=== PATIENT | female | born 1970 | race Two or more races ===

== ENCOUNTER 2016-09-27 08:14 | Emergency (ER) | payer OTHER ==
[2016-09-27 08:35] VITALS: BP 126/72
--- NOTE | 2016-09-27 09:38 | UC ---
Respiratory Complaint HPI - HPI Summary HPI Summary: ONSET OF ST, COUGH, BODY ACHES, NAUSEA AND LOOSE STOOL 2 DAYS AGO. FEVER, CHILLS TMAX 101.6. DECREASED APPETITE. TOOK ALL DM MEDS THIS AM BUT DID NOT EAT. - History of Current Complaint Chief Complaint: UCGeneralIllness Stated Complaint: NAUSEA, AND DIARRHEA Time Seen by Provider: 09/27/16 08:34 Hx Obtained From: Patient Hx Last Menstrual Period: 09/27/16 Onset/Duration: Sudden Onset, Lasting Days, Still Present Timing: Constant Severity Initially: Moderate Severity Currently: Moderate Pain Intensity: 3 Pain Scale Used: 0-10 Numeric Character: Cough: Nonproductive Aggravating Factors: Nothing Alleviating Factors: Nothing Associated Signs And Symptoms: Positive: Fever, Chills, Nasal Congestion. Negative: Dyspnea, Pleuritic Chest Pain, Wheezing, Hemoptysis, Dizziness, Calf Pain, Calf Swelling, Hoarseness, Sinus Discomfort - Allergies/Home Medications Allergies/Adverse Reactions: Allergies Allergy/AdvReac Type Severity Reaction Status Date / Time Java Allergy Severe Rash Verified 09/27/16 08:36 Home Medications: Home Medications Control 1 tab PO DAILY 09/27/16 [History] Cholecalciferol [Vitamin D] 1 tab 09/27/16 [History] Diphenhydramine-Acetaminophen [Tylenol Pm Extra Strength 500-25 mg] 2 tab PO PRN 09/27/16 [History] Metformin ER (NF) 2 tab PO BID 09/27/16 [History Confirmed 09/27/16] Multiple Vitamins W/ Minerals [One-A-Day For Her Vitacra] 1 tab 09/27/16 [ History] PMH/Surg Hx/FS Hx/Imm Hx Endocrine History Of: Reports: Diabetes Denies: Thyroid Disease Cardiovascular History Of: Denies: Cardiac Disorders, Hypertension, Pacemaker/ICD Respiratory History Of: Reports: Asthma, Bronchitis - 1+ YR AGO, Pneumonia Denies: COPD GI/ History Of: Reports: Gall Bladder Disease, Kidney Stones - RIGHT SIDE CURRENTLY, Renal Disease - BILATERAL Denies: Ulcer - Surgical History Surgical History: Yes Surgery Procedure, Year, and Place: 1995- tubal ligation, GALL STONE REMOVAL 2009, 4 C-SECTIONS, KIDNEY STONES LITHOTRIPSY 2013 Other Surgical History: gallstone 'laser'. lithotripsy left sided kidney stones - Family History Known Family History: Positive: Diabetes - Social History Alcohol Use: Rare Alcohol Amount: 1 beer Substance Use Type: None Smoking Status (MU): Former Smoker Type: Cigarettes Amount Used/How Often: 1/2-1 PPD X 23 YEARS Have You Smoked in the Last Year: No When Did the Patient Quit Smoking/Using Tobacco: 2004 Household Exposure Type: Cigarettes - Immunization History Most Recent Influenza Vaccination: 05/2016 Most Recent Tetanus Shot: Unsure Most Recent Pneumonia Vaccination: none Review of Systems Constitutional: Fever, Chills, Fatigue ENT: Sore Throat, Ear Ache, Nasal Discharge Respiratory: Cough Cardiovascular: Negative Gastrointestinal: Diarrhea, Other - NAUSEA Musculoskeletal: Myalgia Neurological: Headache All Other Systems Reviewed And Are Negative: Yes Physical Exam Triage Information Reviewed: Yes Appearance: No Pain Distress, Well-Nourished, Ill-Appearing - MODERATELY ILL APPEARING Vital Signs: Initial Vital Signs Temp 99.3 F 09/27/16 08:27 Pulse 107 09/27/16 08:27 Resp 18 09/27/16 08:27 BP 126/72 09/27/16 08:27 Pulse Ox 97 09/27/16 08:27 Eyes: Positive: Conjunctiva Clear ENT: Positive: Hearing grossly normal, Pharynx normal, TMs normal Neck: Positive: Supple, Nontender, No Lymphadenopathy Respiratory Exam: Normal Cardiovascular: Positive: Tachycardia Abdomen Description: Positive: Soft, Other: - DIFFUSELY TENDER. Negative: Distended, Guarding Musculoskeletal: Positive: No Edema Neurological: Positive: Alert Psychological: Positive: Age Appropriate Behavior Skin: Negative: rashes UC Diagnostic Evaluation - Laboratory O2 Sat by Pulse Oximetry: 97 Diagnostic Studies Comment: RAPID FLU POS - FLU A Respiratory Course/Dx - Differential Dx/Diagnosis Provider Diagnoses: INFLUENZA A Discharge - Discharge Plan Condition: Stable Disposition: HOME Prescriptions: Oseltamivir CAP* [Tamiflu CAP*] 75 mg PO BID #10 cap Patient Education Materials: Influenza (ED) Forms: *Work Release Referrals: Katie Valente MD [Primary Care Provider] - If Needed Additional Instructions: REST, OTC MEDS NEEDED FOR FEVER AND DISCOMFORT. FOLLOW-UP IF NEEDED.
== END 2016-09-27 09:54 | disposition home or self-care (01) ==
LOC: UCEAST 08:14
DX: J09.X2 Influenza due to identified novel influenza A virus with other respiratory manifestations (principal); E11.9 Type 2 diabetes mellitus without complications; Z79.84 Long term (current) use of oral hypoglycemic drugs; Z87.891 Personal history of nicotine dependence
CPT/HCPCS: 87502; 99212; G0463

== ENCOUNTER 2017-01-06 06:31 | Inpatient (IN) | payer OTHER ==
--- NOTE | 2016-12-29 15:09 | HP ---
PREOPERATIVE HISTORY AND PHYSICAL: DATE OF ADMISSION/SURGERY: 01/06/17 This patient is scheduled for AA admission by Dr. Christie on 01/06/17. DATE OF PREOPERATIVE HISTORY AND PHYSICAL EXAMINATION: 12/29/16. ATTENDING SURGEON: Dr. Quincy Christie (dictated by Jin Jin NP). CHIEF COMPLAINT: Morbid obesity. HISTORY OF PRESENT ILLNESS: The patient is a 46-year-old female with a body mass index of 47.7 and obesity-related comorbidities of insulin-dependent diabetes mellitus, obstructive sleep apnea requiring BiPAP, and degenerative disk disease. She has completed medically supervised weight loss and is pursuing bariatric surgery as a more permanent solution to her obesity and comorbidities. She has completed all of the necessary preoperative diagnostic testing and evaluations and has been deemed an appropriate candidate by Dr. Christie to proceed with laparoscopic Harley-en-Y gastric bypass. Dr. Christie described the nature of the surgical procedure, the expected results of surgery , the relevant risks, benefits, and alternatives and today I reviewed the expected hospitalization and postoperative care and recovery. The patient understands the need for compliance with stages of the postoperative diet, exercise, vitamin, and mineral supplementation, and followup appointments. The patient has had a chance to ask questions and stated that she understands the information and is satisfied with the answers given to her questions. She will sign surgical consent on the day of surgery. PAST MEDICAL HISTORY: Significant for insulin-dependent diabetes mellitus diagnosed over 10 years ago; obstructive sleep apnea and she has been on BiPAP for over 2 years; worsening back pain with degenerative disk disease and osteoarthritis as documented on an MRI of the lumbar spine, dated 04/18/16. There is also severe narrowing of the central canal at L4-L5 and broad-based central disk protrusion, T12 through L1, and multilevel neuroforaminal narrowing. PAST SURGICAL HISTORY: sections x4; laparoscopic cholecystectomy in 2009 in [place]; Cysto stent for left kidney stones in 2013, Dr. Maria; tubal ligation in 1995; and laser eye surgery for macular edema bilaterally. OB HISTORY: 5, para 4, miscarriage 1; last menstrual period started 05/17. She is status post tubal ligation. She is up-to-date with breast exam, pelvic and Pap smear. MEDICATIONS: 1. Ferrous gluconate 324 mg p.o. b.i.d. 2. Flonase Allergy Relief 1 spray in each nostril daily as needed. 3. Tylenol with Codeine No. 3, 1 to 2 tablets every 6 hours p.r.n. 4. Metformin 1000 mg p.o. b.i.d. and she has not taken that for 2 weeks and she will continue to hold it preoperatively. 5. Victoza 18 mg/3 mL inject 1.8 mg subcutaneously daily and she has held that for the past 2 weeks. 6. Lantus insulin 100 units per mL, 45 units daily in the morning. 7. NovoLog insulin sliding scale with meals. 8. Proventil inhaler 1 puff every 4 hours as needed. 9. Lisinopril 10 mg p.o. daily and she states that she ran out of this prescription and has not taken it for 1 week. 10. Gabapentin 100 mg 2 tablets by mouth t.i.d. and she states that she went off of that several weeks ago. ALLERGIES: No known drug allergies. STRAWBERRIES cause rash. FAMILY HISTORY: Mother is living, age 88, she is now in a halfway, she had a previous history of obesity and diabetes. The patient's father at age 71 with heart disease and complications of diabetes. Three of the patient's brothers are diabetic. No known anesthesia complications, bleeding tendencies, or clotting disorders in the family. SOCIAL HISTORY: She is and is employed at the [employer]; she quit smoking 20 years ago; she drinks alcohol socially and denies the use of other substances. REVIEW OF SYSTEMS: She denies any cardiac conditions or complaints; she was taking lisinopril and was told that it was heart protective and that she was not being treated for hypertension; she denies any chest pain, pressure, palpitations, and has never had a deep vein thrombosis or pulmonary embolism. She has obstructive sleep apnea and uses BiPAP with good effect; she has exercise-induced asthma symptoms; no history of pneumonia. She denies acid reflux; she underwent upper GI series, which was within normal limits. She had an abdominal ultrasound, which revealed hepatic steatosis and a surgically absent gallbladder. She has a history of urinary cough leakage; history of left kidney stones, requiring a Cysto stent by Dr. Maria in 2013. She denies any previous anesthesia complications or bleeding tendencies and has never received a blood transfusion. She was diagnosed with type 2 diabetes over 10 years ago and is now insulin-dependent. Fingerstick glucose runs between 140 to 150. She is checking her fingersticks frequently while on the preoperative liquid diet. She is followed at [facility] every 3 months for diabetes and states that her previous physician is no longer there and she is going to be assigned to a new physical therapy aide. She is followed by a retina specialist in [place] for macular edema, requiring laser surgery and injections. She is followed by Dr. Riggins from Podiatry for diabetic foot care. She has been seen by Dr. Phillips from Orthopedics for evaluation of her chronic back pain. She denies any dysuria; she denies any neurologic conditions or complaints. PHYSICAL EXAMINATION GENERAL SURVEY: The patient is a 46-year-old morbidly obese female. VITAL SIGNS: She stands at 64-1/2 inches and weighs 282 pounds for a body mass index of 47.7. Blood pressure 138/82, pulse 80 and regular, respiratory rate 18 , temperature 97.7 tympanic. SKIN: Warm, dry, intact. HEENT: Benign. NECK: Supple. No cervical lymphadenopathy. No supraclavicular lymphadenopathy. No thyromegaly. BACK: No CVA tenderness. LUNGS: Breath sounds bilaterally clear and equal. HEART: Regular rate and rhythm. No murmurs or rubs appreciated. ABDOMEN: Active bowel sounds. Obese. Well-healed Pfannenstiel scar and multiple trocar scars. No obvious masses, organomegaly, or evidence of incisional or ventral hernias, but exam is limited by body habitus. PELVIC: Deferred. EXTREMITIES: Warm without edema or skin ulcerations. RECTAL: Deferred. NEUROLOGIC: Alert and oriented x3. Steady gait. IMPRESSION: 1. Morbid obesity. 2. Insulin-dependent diabetes mellitus. 3. Obstructive sleep apnea, requiring BiPAP. 4. Degenerative joint disease. PLAN: AA admission to Dr. Christie' service on 01/06/17, for laparoscopic Harley-en-Y gastric bypass. JIN JIN NP CC: Dr. Christie; Dr. Katie Valente* [id number]/[facility] #: [id number] [place]
[~2017-01-06 06:31] MED LIST: Buffered Lidocaine 1% SYRIN* 3 ML/SYR SYRINGE INTRADERM ONE
[2017-01-06] MEDS ORDERED: Bupivacaine 0.5% W/EPI SDV* 30 ML VIAL ONE (07:01)
[2017-01-06] MEDS ORDERED: Methylene Blue 0.5 %* 50 MG/10 ML AMP IV ONE (07:01)
[2017-01-06] MEDS ORDERED: ceFAZolin 2 GM PREMIX(*) 2 GM/50 ML BAG IVPB ONE (07:14)
[2017-01-06] MEDS ORDERED: Clindamycin 900 MG IVPREMIX(* 900 MG/50 ML SDV IV ONE (07:14)
[2017-01-06] MEDS ORDERED: Heparin VIAL(*) 5000 UNITS/ML VIAL (FIVE THOUSAND) ONE ×2 (07:14→14:52)
[2017-01-06] MEDS ORDERED: ceFAZolin 1 GM in Dextrose (*) 1 GM/50 ML BAG IVPB ONE (07:14)
[2017-01-06] MEDS ORDERED: fentaNYL* 50 MCG/ML 2 ML VIAL (100 MCG VIAL) ONE ×3 (07:55→10:28)
[2017-01-06] MEDS ORDERED: Midazolam* 1 MG/ML 5 ML VIAL (5 MG) ONE (07:55)
[2017-01-06] MEDS ORDERED: Propofol* 10 MG/ML 20 ML BTL IV PUSH ONE (07:55)
[2017-01-06] MEDS ORDERED: Succinylcholine* 20 MG/ML 10 ML VIAL ONE (08:00)
[2017-01-06] MEDS ORDERED: Atracurium* 10 MG/ML 10 ML VIAL ONE (08:00)
[2017-01-06] MEDS ORDERED: Scopolamine 1.5 mg* PATCH ONE (08:15)
[2017-01-06] MEDS ORDERED: DiMENhydriNATE IV* 50 MG/ML VIAL IV PUSH PRN (09:14)
[2017-01-06] MEDS ORDERED: Ondansetron INJ* 2 MG/ML VIAL IV PRN ×2 (09:14→10:13)
[2017-01-06] MEDS ORDERED: HYDROmorphone* 1 MG/ML 1 ML SYR IV PRN ×3 (09:14→10:13)
[2017-01-06] MEDS ORDERED: Ondansetron INJ* 2 MG/ML VIAL ONE ×2 (09:54→11:09)
--- NOTE | 2017-01-06 10:06 | PN ---
Progress Note - Progress Note Note: Brief Operative Note: Preop and Postop Dx: Morbid Obesity Procedure: Laparoscopic Harley En Y Gastric Bypass Anesthesia: GET Surgeon: Pratik Asst: LAKHWINDER Hope EBL: < 100 ml Fluids: 2300 ml RL Drains: none Specimen: none Findings: dictated
[2017-01-06] MEDS ORDERED: diPHENhydraMINE IV* 50 MG/ML 1 ml VIAL (BENADRYL) SLOW PUSH PRN (10:13)
[2017-01-06] MEDS ORDERED: Acetaminophen ADULT LIQ* 650 MG/20.3 ML UDC PO PRN (10:13)
[2017-01-06] MEDS ORDERED: Fluticasone NASAL SPRAY 50MCG* 16 gm SPRAY BTL BOTH NARES PRN (10:20)
[2017-01-06] MEDS ORDERED: Albuterol HFA INHALER* 8 gm MDI INH PRN (10:20)
[2017-01-06] MEDS ORDERED: HYDROmorphone* 1 MG/ML 1 ML SYR ONE ×2 (10:28→14:52)
[2017-01-06] MEDS: fentaNYL* 50 MCG/ML 2 ML VIAL (100 MCG VIAL) IV PRN ×4 (10:30→12:23)
[2017-01-06] MEDS ORDERED: Dextrose 50% Syringe 50 ML* 25 GM/50 ML SYRINGE IV PUSH PRN (10:41)
[2017-01-06] MEDS ORDERED: Labetalol IV* 5 MG/ML 20 ML VIAL ONE (12:08)
[2017-01-06] MEDS ORDERED: hydrALAZINE IV* 20 MG/ML VIAL ONE (12:56)
[2017-01-06] MEDS: Insulin LISPRO* 1 UNITS UNIT SUBCUT SCH ×2 (14:25→18:28)
[2017-01-06] MEDS: Heparin VIAL(*) 5000 UNITS/ML VIAL (FIVE THOUSAND) SUBCUT SCH ×2 (14:57→22:09)
[2017-01-06] MEDS: Ketorolac INJ* 30 MG/ML 1 ML VIAL IV PRN (18:27)
[2017-01-07] MEDS: Insulin LISPRO* 1 UNITS UNIT SUBCUT SCH ×4 (00:02→19:51)
[2017-01-07] MEDS: Ketorolac INJ* 30 MG/ML 1 ML VIAL IV PRN (05:33)
[2017-01-07] MEDS: Heparin VIAL(*) 5000 UNITS/ML VIAL (FIVE THOUSAND) SUBCUT SCH ×3 (05:33→22:22)
--- NOTE | 2017-01-07 08:30 | PN ---
Progress Note - Progress Note SOAP: Subjective: Pain well controlled. No N/V. Objective: Vital Signs Temp 98.4 F 01/07/17 07:14 Pulse 88 01/07/17 07:14 Resp 18 01/07/17 07:14 BP 133/71 01/07/17 07:14 Pulse Ox 98 01/07/17 07:14 NAD, sitting in chair. Abd: dressings, c/d/i, no erythema; soft; NT. Intake & Output 01/06/17 01/07/17 01/07/17 18:59 06:59 18:59 Intake Total 2800 2184 Output Total 1050 600 Balance 1750 1584 Intake: IV Fluids 2800 2184 900MG CLINDAMYCIN 50 LR 2650 2184 NS 50ML, Cefazolin 1G 50 NS 50ML, Cefazolin 2G 50 Oral 0 Output: Urine 800 600 Beyer 250 Laboratory Results - last 24 hr 01/06/17 01/06/17 01/06/17 10:52 18:06 23:56 POC Glucose (mg/dL) 168 H 181 H 134 H 01/07/17 05:37 POC Glucose (mg/dL) 141 H Assessment: POD#1 s/p LRYGB. Doing well. Plan: Advance diet. Ambulate. Home tomorrow.
[2017-01-07] MEDS: Insulin GLARGINE(*) 1 UNITS UNIT SUBCUT SCH (09:39)
--- NOTE | 2017-01-07 10:49 | OP ---
DATE OF OPERATION: 01/06/17 - ROOM #353 DATE OF : 66 SURGEON: Quincy Christie MD SOLAR SALES REPRESENTATIVE AND ASSESSOR: LAKHWINDER Marrero ANESTHESIOLOGIST: Kee Bourgeois MD ANESTHESIA: General endotracheal. PRE-OP DIAGNOSIS: Morbid obesity. POST-OP DIAGNOSIS: Morbid obesity. OPERATIVE PROCEDURE: Laparoscopic Harley-en-Y gastric bypass. ESTIMATED BLOOD LOSS: Minimal. IV FLUIDS: Crystalloid. SPECIMENS: None. DRAINS: None. COMPLICATIONS: None. COUNTS: The instrument, needle, and sponge counts were correct. DESCRIPTION OF PROCEDURE: The patient was brought to the operating room and placed on the table supine. Sequential compression devices were placed on both lower extremities. General anesthesia was administered. Beyer catheter was placed. Her abdomen was prepped and draped in the usual sterile fashion. She received appropriate antibiotics and time-out was performed. Local anesthetic was infiltrated into the skin and soft tissue prior to making each incision. Entry into the abdomen was through a left upper quadrant incision accommodating a 12-mm optical trocar. After accessing the peritoneal cavity, carbon dioxide was insufflated to a pressure of 15 mmHg. Under direct visualization, 5 mm trocars were placed in the left upper quadrant laterally, right upper quadrant medially, and 12-mm bladeless trocars were placed in supraumbilical midline and right upper quadrant as well. A Felecia liver retractor was placed in the subxiphoid position percutaneously and used to elevate the left lobe of the liver. The liver did appear to be fatty infiltrated. The gastric anatomy appeared normal and the mobilization of the fundus of the stomach away from the left dani of the diaphragm was performed bluntly. A perigastric dissection was undertaken on the lesser curvature to enter the lesser sac and then a transverse firing with the Endo RONNY stapler with the tiwari cartridge was used to initiate the gastric pouch, which was then completed with vertical firings along the stomach towards the angle of His to create a gastric pouch approximating 15 to 30 mL volume. After the pouch was created, the omentum and transverse colon were retracted superiorly and the ligament of Treitz was identified. The jejunum was measured out 40 cm, and at this point, the bowel was sutured to the lateral left aspect of the gastric pouch with 2-0 silk and 3-0 silk sutures. Then the gastrojejunostomy was created with a RONNY stapler sizing it around a 36-Croatian orogastric tube. The common gastroenterotomy was run closed with 3-0 Maxon. The Harley limb was created by dividing the loop of small bowel to the left side of the anastomosis, and then the anastomosis was tested with methylene blue dye solution instilled through the orogastric tube and no leak was identified. Lastly, the Harley limb was measured out to 75 cm, and at that point, a functional end-to-side jejunojejunostomy was created with a 16-mm tiwari Endo RONNY stapler cartridge. The common enterotomy was run closed with 3-0 Maxon. The mesenteric defect was closed with 3-0 silks in interrupted [id number] fashion. Inspection revealed hemostasis to be excellent. Ports were removed under direct visualization and the liver retractor was removed. Carbon dioxide was released. The patient was extubated uneventfully and transferred to recovery room in stable condition. CC: Katie Valente MD* [id number]/[facility] #: [id number] [place]
[2017-01-07] MEDS: HYDROcodone/ACET. 7.5/325 LIQ* 15 ML UDC PO PRN (12:57)
[2017-01-07] MEDS ORDERED: PTO: Albuterol HFA INHALER* 8 gm MDI INH PRN (17:10)
[2017-01-07] MEDS ORDERED: Famotidine IV* 10 MG/ML 2 ML (20 mg) ONE (22:17)
[2017-01-08] MEDS: Insulin LISPRO* 1 UNITS UNIT SUBCUT SCH ×3 (00:26→12:12)
[2017-01-08] MEDS: HYDROcodone/ACET. 7.5/325 LIQ* 15 ML UDC PO PRN (02:28)
[2017-01-08] MEDS: Heparin VIAL(*) 5000 UNITS/ML VIAL (FIVE THOUSAND) SUBCUT SCH (06:19)
--- NOTE | 2017-01-08 09:28 | PN ---
Progress Note - Progress Note SOAP: Subjective: Good pain control. +flatus/BM. Tolerating clears; not hungry. Seen by RD but not by Hospitalist. She says [facility] has been managing DM but she is unclear as to current management plan. Objective: Vital Signs Temp 97.6 F 01/08/17 07:45 Pulse 65 01/08/17 07:45 Resp 16 01/08/17 07:46 BP 147/66 01/08/17 07:45 Pulse Ox 97 01/08/17 07:46 NAD Abd: inci c/d/i no erythema; soft; NT. Intake & Output 01/07/17 01/08/17 01/08/17 18:59 06:59 18:59 Intake Total 360 1253 Output Total 1000 600 450 Balance -640 653 -450 Intake: IV Fluids 1148 LR 1148 IVPB 105 pepcid 105 Oral 360 Output: Urine 1000 600 450 Other: Date of Last Bowel 01/07/17 Movement # Bowel Movements 1 Estimated Stool Amount Large Laboratory Results - last 24 hr 01/07/17 01/07/17 01/08/17 12:07 17:22 00:24 POC Glucose (mg/dL) 122 H 114 H 118 H 01/08/17 06:01 POC Glucose (mg/dL) 111 H Assessment: POD#2 s/p LRYGB. DM. Doing well. Plan: Hospitalist will see to clarify DM management plan. Home later today. RTO 1 week for staple removal. Follow diet guidelines.
[2017-01-08] MEDS: Insulin GLARGINE(*) 1 UNITS UNIT SUBCUT SCH (09:39)
--- NOTE | 2017-01-08 11:47 | PN ---
Progress Note - Progress Note Note: Consult dictated. Recommend at discharge : cont Lantus 45 mg daily in AM Hold Victosa and metformin cont Fingersticks 4x/day
[2017-01-08 12:39] VITALS: BP 161/81
--- NOTE | 2017-01-08 13:37 | CONS ---
CONSULTATION REPORT: DATE OF CONSULT: 01/08/17 PRIMARY CARE PROVIDER: Dr. Valente. REASON FOR CONSULTATION: Diabetic management. HISTORY OF PRESENT ILLNESS: Ms. Foy is a 46-year-old female with a history of morbid obesity who is status post gastric bypass surgery which was a laparoscopic surgery performed by Dr. Christie on 01/07/17. Today, she is doing well and she is on clear liquid diet and she is prepared for discharge. Dr. Christie asked medicine service to see the patient for recommendations for diabetic management at discharge. PAST MEDICAL HISTORY: 1. History of insulin-dependent diabetes for 10 years under the care of [facility]. The patient stated that her primary support service tech at [facility] is not in the facility anymore and she missed one appointment in the past month. 2. Obstructive sleep apnea, on BiPAP. 3. History of lower back pain and degenerative disk disease. 4. History of x4. 5. Laparoscopic cholecystectomy. 6. History of cystoscopy for kidney stones in 2013. 7. Tubal ligation in 1995. 8. Laser eye surgery for macular edema bilaterally in the past. MEDICATIONS AT HOME: Include: 1. Ferrous gluconate 4 mg b.i.d. 2. Flonase one spray each nostril as needed. 3. Tylenol was called in on a p.r.n. basis. 4. Metformin 1000 mg b.i.d. 5. Victoza 1.8 mg subcutaneous daily, none for 2 weeks prior to surgery. 6. Insulin Lantus, the patient used to be on 45 units b.i.d. but 2 weeks before surgery, she started dieting and she lowered her dose to 45 mg daily due to episodes of hypoglycemia. 7. NovoLog sliding scale with meals. 8. Albuterol inhaler on a p.r.n. basis. 9. Lisinopril 10 mg daily. 10. Gabapentin 200 mg 3 times a day. During the hospital stay, the patient had been on Pepcid IV every 12 hours, as well as IV fluids with lactated Ringer's. The patient was on insulin lispro sliding scale as well as insulin Lantus 45 units daily. She was also on hydromorphone for pain management and fluticasone nasal spray. Her sugars had been in the range of 111 to 141 for the past 2 days. There had not been any laboratory tests performed during the hospital stay. ALLERGIES: No known drug allergies. FAMILY HISTORY: Positive for mother with history of obesity and diabetes. Father with history of heart disease, who at age of 71. SOCIAL HISTORY: The patient is , employed by the [employer]. She denies current tobacco or alcohol use. Her surrogate is her , James Paul. REVIEW OF SYSTEMS: Please see history of present illness. On the day of admission, the patient stated that she had been on clear diet and she has been doing well. She has had bowel movements. She occasionally has postoperative abdominal pain due to "gas." She has been ambulating without any problems postoperatively. The remaining 14 systems were reviewed with the patient and were otherwise negative. PHYSICAL EXAM: Blood pressure 147/66, heart rate of 65 and regular, respiratory rate 18, oxygen saturation 100% on room air, temperature 97.6. General: The patient is a very pleasant 46-year-old female who is in no acute distress. Alert, awake, and oriented x3. HEENT: Head is atraumatic, normocephalic. Eyes: Pupils are equal, round, and reactive to light and accommodation. Oropharynx clear. Mucosa moist. Neck: Supple. No JVD. No bruits bilaterally. Cardiovascular: Regular rate and rhythm. No murmur. Respiratory: Clear to auscultation bilaterally. Abdomen: Protuberant, obese, soft, minimally tender in the terra- incision area. The patient has multiple status post laparoscopic surgery incisions on her abdomen. Most of them are below 2 cm in length. They are all stapled. There was no wound dehiscence noted. There is no skin infection noted. Extremities: There is no edema. Pulses are +2 bilaterally. No clubbing or cyanosis. On neuro evaluation, speech clear. Cranial nerves II through XII grossly intact. Motor strength is 5/5 bilaterally. ASSESSMENT AND PLAN: A 46-year-old female status post gastric bypass surgery, who has history of insulin-dependent diabetes. In regards to the patient's diabetic management, I asked the outreach educator from [facility] to come in to evaluate the patient today prior to discharge. At this point, I recommended for the patient to continue checking her sugars 3 to 4 times a day and continue her insulin Lantus at 45 units daily. She is to hold her Victoza and metformin. I told her that it is possible that as time progresses on her clear liquid diet for the next 2 weeks, she may actually become hypoglycemic and she needs to watch for her symptoms which she is aware of. I suspect she is going to follow with [facility] outreach educator as outpatient also. In regards to her seasonal allergies, Flonase inhaler is to be continued on a p.r.n. basis. In regards to status post gastric bypass, that will be as per recommendations of Dr. Christie. For obstructive sleep apnea, the patient is to continue BiPAP at home. TIME SPENT: Approximately 65 minutes was spent on the consultation of this patient, more than half that time was spent [id number] with the patient during the interview and physical exam. Thank you for allowing me to see your very nice patient in consultation. Please let me know if there is anything else that we could assist this patient with during her hospital stay. Otherwise, Medicine will sign off. CC: Dr. Christie; Dr. Valente* [id number]/[facility] #: [id number] [facility]
--- NOTE | 2017-01-08 14:29 | PN ---
Progress Note - Progress Note Note: Seen this a.m. by Dr. Christie. Discharge instructions reviewed. See d/c summary.
--- NOTE | 2017-01-08 15:29 | CONSULT ---
Subjective Reason for Visit: Diabetes Education Consult Admission Date: 01/06/17 History Of Present Illness: 46 year old woman with a 15 year history of type 2 diabetes post-op day 2 from laparoscopic harry-en-Y gastric bypass. She has had an uneventful post- operative course and will be discharged home today. Pre-operatively she was on Metformin, 90 U Lantus, Humalog sliding scale coverage and Victoza to manage her diabetes. She reports that her last HgbA1C was <7%. She was followed by the [facility] for her diabetes prior to surgery but has not been there recently because the research tech she was seeing left. She is hoping that she will eventually be off of most of her diabetic medications and has been doing very well with 45 Units of Lantus in the morning since having surgery. Dr Valente is her PCP but she has not seen her regularly. Patient History Surgical History: Yes Surgery Procedure, Year, and Place: 1995- tubal ligation WITH , GALL STONE REMOVAL 2009, 4 C-SECTIONS, KIDNEY STONES LITHOTRIPSY 2013 Preferred/Primary Language: Malagasy Objective Allergies Allergy/AdvReac Type Severity Reaction Status Date / Time [place] Allergy Severe Rash Verified 01/06/17 06:44 Home Medications Medication Instructions Recorded Confirmed Type Albuterol INH (Proventyl)(NF) 2 puff IN Q4HR PRN 02/27/14 02/18/16 History [Proventil Hfa (NF)] Gabapentin CAP(*) [Neurontin 100 2 cap PO TID 02/27/14 02/18/16 History mg CAP(*)] zzInsulin GLARGINE(*) [zzLantus(*)] 45 units SUBCUT QAM 02/27/14 02/18/16 History Insulin Aspart [Novolog] 1 unit SC PRN 08/19/15 08/19/15 History Cyanocobalamin TAB* [Vitamin B12 5,000 mcg PO DAILY 02/18/16 02/18/16 History TAB*] diPHENhydraMINE PO* [Benadryl PO 25 mg PO PRN 02/18/16 History 25 MG TAB*] Control 1 tab PO DAILY 09/27/16 History Diphenhydramine-Acetaminophen 2 tab PO PRN 09/27/16 History [Tylenol Pm Extra Strength 500-25 mg] Acetaminop/Codeine 30 MG TAB* 1 tab PO BID PRN 12/29/16 01/06/17 History [Tylenol/Codeine 30 MG TAB*] Fluticasone NASAL SPRAY 50MCG* 1 spray BOTH NARES DAILY PRN 12/29/16 01/06/17 History [Flonase NASAL SPRAY 50MCG*] Iron Supplement 1 tab PO DAILY 12/29/16 History Nystatin TOP POWDER* 1 applic TOPICAL DAILY 12/29/16 01/06/17 History Vitamin D2 1 cap PO WEEKLY 12/29/16 12/29/16 History Acetaminophen ADULT LIQ* [Tylenol 650 mg PO Q6H PRN #0 udc 01/08/17 Rx ADULT LIQ*] Hospital Medications: Current Medications Acetaminophen (Tylenol Adult Liq*) 650 mg PO Q6H PRN PRN Reason: Temp > 101 F Or Mild Pain Hydrocodone Bitart/Acetaminophen (Nortab 7.5/325 Liq*) 15 ml PO Q6H PRN PRN Reason: PAIN Last Admin: 01/08/17 02:28 Dose: 15 ml Albuterol (Ventolin Hfa Inhaler*) 2 puff INH Q4HR PRN PRN Reason: SOB/WHEEZING Dextrose (D50w Syringe 50 Ml*) 12.5 gm IV PUSH .FOR FS < 60 - SS PRN PRN Reason: FS < 60 Diphenhydramine HCl (Benadryl Iv*) 25 mg SLOW PUSH Q6H PRN PRN Reason: ITCHING Fluticasone Propionate (Flonase Nasal Seale 50mcg*) 1 spray BOTH NARES DAILY PRN PRN Reason: ALLERGIES Heparin Sodium (Porcine) (Heparin Vial(*)) 5,000 units SUBCUT Q8HR COUNT INCLUDES THE [facility] Last Admin: 01/08/17 06:19 Dose: 5,000 units Hydromorphone HCl (Dilaudid Iv*) 0.5 mg IV Q3H PRN PRN Reason: PAIN - MODERATE Hydromorphone HCl (Dilaudid Iv*) 1 mg IV Q3H PRN PRN Reason: PAIN - SEVERE Last Admin: 01/06/17 14:56 Dose: 1 mg Famotidine 20 mg/ Sodium (Chloride) 102 mls @ 408 mls/hr IVPB Q12H COUNT INCLUDES THE [facility] Last Admin: 01/08/17 11:08 Dose: 408 mls/hr Insulin Glargine (Lantus(*)) 45 units SUBCUT QAM COUNT INCLUDES THE [facility] Last Admin: 01/08/17 09:39 Dose: 45 units Insulin Human Lispro (Humalog*) 0 units SUBCUT Q6HR YANG PRN Reason: Protocol Last Admin: 01/08/17 12:12 Dose: Not Given Ondansetron HCl (Zofran Inj*) 4 mg IV Q6H PRN PRN Reason: NAUSEA/VOMITING Vital Signs: Vital Signs 01/08/17 01/08/17 01/08/17 07:45 07:46 12:03 Temperature 97.6 F 98.2 F Pulse Rate 65 74 Respiratory 18 16 18 Rate Blood Pressure 147/66 161/81 (mmHg) O2 Sat by Pulse 100 97 96 Oximetry Height: 5 ft 4 in Weight: 279 lb 9.6 oz Body Mass Index (BMI): 47.9 Physical Exam General Appearance: Positive: Alert, Oriented x3, Obese, Comfortable, OOB Sitting In Chair Plan Of Care Patient's Next Step: Patient will be discharged home. She will be on 45 Units of Lantus/day which is half of her pre-operative basal insulin dose. It would be appropriate to restart Metformin when she can take pills and gradually decrease her basal insulin as she loses weight. She would like to follow up with her PCP (Dr Valente) for diabetic management if possible. Dr. Valente's office was contacted regarding this and they will contact the patient regarding making a follow up appointment. She has an excellent understanding of recognition and treatment of hypoglycemic episodes and her is very supportive in these instances too. Referral To: Air Analysis Engineering Technician - will follow up at [facility] for post-operative dietary counseling Education Prior Diabetic Education: Yes Goals Goals: 30 minutes was spent in face to face counseling and coordination of care.
--- NOTE | 2017-01-09 01:40 | DS ---
DISCHARGE SUMMARY: DATE OF ADMISSION: 01/06/17 DATE OF DISCHARGE: 01/08/17 ATTENDING SURGEON: Quincy Christie MD (DICTATED BY [facility]AY) HOSPITAL COURSE: Please refer to admission history and physical for admission details. The patient was taken to the operating room on 01/06/17 and underwent laparoscopic Harley-en-Y gastric bypass with Dr. Christie. Her postoperative course has been otherwise unremarkable with gradual resumption of bariatric clear liquid diet and pain control. As of the morning of discharge, temperature is 98.2, blood pressure 161/81, pulse 74, respirations 18, room air saturation 96%. She had been seen and examined earlier in the morning by Dr. Christie and deemed appropriate for discharge pending final consult for diabetes management. DISCHARGE MEDICATIONS: Will include her usual inhalers. Supplements as directed. Lantus 45 units subcu q.a.m. She will have her NovoLog to use for coverage if she is hyperglycemic, though at this point the concern is more for potential hypoglycemia. She will hold her Victoza and metformin. She will also continue to hold lisinopril until seen for followup in our office on . Her gabapentin had apparently been stopped pre-hospital. She does have prescription for hydrocodone/APAP elixir and will use adult strength liquid acetaminophen p.r.n. for mild pain. DISCHARGE INSTRUCTIONS: Including diet, wound care, and activities were reviewed as well as review of her medications. FOLLOWUP: Followup will be 01/16/17 in our office. She should be seen within the next couple of weeks by her primary care office, Dr. Katie Valente as well. [facility] CC: [facility]; Dr. Katie Valente, [facility]; [facility] * [id number]/[facility] #: [id number] [place]
== END 2017-01-08 15:30 | disposition home or self-care (01) | DRG 403 ==
LOC: AA 06:31 → SSU 13:47
PROVIDERS: ADMIT Surgery; ATTEND Surgery
PROC: 0D164ZA Bypass Stomach to Jejunum, Percutaneous Endoscopic Approach (ICD-10-PCS; principal; 2017-01-06 08:00)
DX: E66.01 Morbid (severe) obesity due to excess calories (principal); E11.21 Type 2 diabetes mellitus with diabetic nephropathy; E11.40 Type 2 diabetes mellitus with diabetic neuropathy, unspecified; G47.33 Obstructive sleep apnea (adult) (pediatric); M48.06 Spinal stenosis, lumbar region; J45.909 Unspecified asthma, uncomplicated; E11.319 Type 2 diabetes mellitus with unspecified diabetic retinopathy without macular edema; K76.0 Fatty (change of) liver, not elsewhere classified; M51.36 Other intervertebral disc degeneration, lumbar region; M47.9 Spondylosis, unspecified; I10 Essential (primary) hypertension; M51.35 Other intervertebral disc degeneration, thoracolumbar region; Z68.42 Body mass index [BMI] 45.0-49.9, adult; Z98.51 Tubal ligation status; Z91.018 Allergy to other foods; Z87.891 Personal history of nicotine dependence; Z83.3 Family history of diabetes mellitus; Z82.49 Family history of ischemic heart disease and other diseases of the circulatory system; Z87.442 Personal history of urinary calculi; Z79.4 Long term (current) use of insulin
CPT/HCPCS: 94760; 99252; A9270-GY; C1776; J0330; J0360; J0690; J1170; J1644; J1885; J2250; J2405; J2704; J3010

== ENCOUNTER 2017-04-09 18:54 | Emergency (ER) | payer OTHER ==
[2017-04-09 19:00] VITALS: BP 128/47
--- NOTE | 2017-04-09 19:08 | UC ---
Abdominal Pain Female HPI - HPI Summary HPI Summary: 46 year old female presents with complains of not feeling well, nausea, and abdominal pain. - History of Current Complaint Chief Complaint: UCGeneralIllness Stated Complaint: DIARRHEA NAUSEA Time Seen by Provider: 04/09/17 19:05 Hx Last Menstrual Period: 04/09/17 Allergies/Adverse Reactions: Allergies Allergy/AdvReac Type Severity Reaction Status Date / Time [place] Allergy Severe Rash Verified 04/09/17 19:00 Home Medications: Home Medications Cholecalciferol TAB* [Vitamin D TAB*] 2,000 units PO DAILY 04/09/17 [History Confirmed 04/09/17] Pediatric Multiple Vitamin W/ [Alive Gummies For Childre] 1 chw PO DAILY [History Confirmed 04/09/17] PMH/Surg Hx/FS Hx/Imm Hx Previously Healthy: Yes - Surgical History Surgical History: Yes Surgery Procedure, Year, and Place: 1995- tubal ligation, GALL STONE REMOVAL 2009, 4 C-SECTIONS, KIDNEY STONES LITHOTRIPSY 2013, GASTRIC BYPASS 01/06/17 Other Surgical History: gallstone 'laser'. lithotripsy left sided kidney stones - Family History Known Family History: Positive: Diabetes - Social History Alcohol Use: None Alcohol Amount: 1 beer Substance Use Type: None Substance Use Comment - Amount & Last Used: TYLENOL #3 FOR PAIN Smoking Status (MU): Never Smoked Tobacco Type: Cigarettes Amount Used/How Often: 1/2-1 PPD X 23 YEARS Have You Smoked in the Last Year: No When Did the Patient Quit Smoking/Using Tobacco: 2004 Household Exposure Type: Cigarettes - Immunization History Most Recent Influenza Vaccination: 05/2016 Most Recent Tetanus Shot: Unsure Most Recent Pneumonia Vaccination: none Review of Systems Constitutional: Negative Skin: Negative Eyes: Negative ENT: Negative Respiratory: Negative Cardiovascular: Negative Gastrointestinal: Abdominal Pain, Nausea Genitourinary: Negative Motor: Negative Neurovascular: Negative Musculoskeletal: Negative Neurological: Negative Psychological: Negative All Other Systems Reviewed And Are Negative: Yes Physical Exam Triage Information Reviewed: Yes Vital Signs: Initial Vital Signs Temp 37.4 C 04/09/17 18:57 Pulse 77 04/09/17 18:57 Resp 16 04/09/17 18:57 BP 128/47 04/09/17 18:57 Pulse Ox 99 04/09/17 18:57 Eye Exam: Normal ENT Exam: Normal Dental Exam: Normal Neck exam: Normal Neck: Positive: 1 Respiratory Exam: Normal Cardiovascular Exam: Normal Abdominal Exam: Normal Musculoskeletal Exam: Normal Neurological Exam: Normal Psychological Exam: Normal Skin Exam: Normal Abd Pain Female Course/Dx - Differential Dx/Diagnosis Provider Diagnoses: abdominal pain Discharge - Discharge Plan Condition: Stable Disposition: HOME Prescriptions: Nitrofurantoin Monohyd Macro [Macrobid] 100 mg PO BID #14 cap Patient Education Materials: Urinary Tract Infection in Women (ED) Referrals: Katie Valente MD [Primary Care Provider] - If Needed
== END 2017-04-09 20:25 | disposition home or self-care (01) ==
LOC: UCEAST 18:54
DX: R10.9 Unspecified abdominal pain (principal); R11.0 Nausea; Z32.02 Encounter for pregnancy test, result negative; Z87.442 Personal history of urinary calculi; Z98.84 Bariatric surgery status; Z87.891 Personal history of nicotine dependence
CPT/HCPCS: 81003; 84702; 87086; 87502; 87651; 99212; G0463

== ENCOUNTER 2017-06-08 10:41 | Emergency (ER) | payer OTHER ==
[2017-06-08 13:08] VITALS: BP 129/60
--- NOTE | 2017-06-21 16:33 | UC ---
Jann Valles Angela, scribed for NicolePiper DO Basilio on 06/08/17 at 1205 . General HPI - HPI Summary HPI Summary: This pt is a 47 y/o female presenting to [facility] c/o sore throat, cough, sinus congestions x2 days, today presents with vomiting and diarrhea. Pt reports 2 days ago her symptoms began with a scratchy throat, cough and sinus congestion. She has been drinking hot tea with honey which alleviates her sore throat. She states she took vitamins and muscle milk this morning at 0700 and 15 minutes later she vomited and had diarrhea. Pt notes 4 episodes of diarrhea today (3 times at home, once at work). At onset it was very watery and now (after taking imodium) it is a little more solid in clumps but still watery. Pt describes her diarrhea as very foul smelling but denies bloody stools. She reports abd cramping before having an episode diarrhea, described as a "pinch." Pt has had 2 episodes of emesis (once at home, once at work), non-bloody. She denies fever , chills, ear ache, chest pain, SOB, dysuria, hematuria, rash, urinary frequency or urgency, change in color of urine. She additionally c/o chronic back pain that shoots down her back. Pt denies smoking but states she has smoke exposure. PSHx: tubal ligation (1995), gastric bypass (January 06, 2017) PMHx: diabetes. - History of Current Complaint Chief Complaint: UCGI Stated Complaint: COUGH/DIARRHEA Time Seen by Provider: 06/08/17 11:58 Hx Obtained From: Patient Hx Last Menstrual Period: Now Onset/Duration: Lasting Days, Still Present Pain Intensity: 3 - out of 10. Associated Signs & Symptoms: Positive: Abdominal Pain - prior to episodes of diarrhea, Back Pain - chronic, Cough, Diarrhea, Vomiting, Other - sore throat, sinus congestion. Negative: Chest Pain, Fever, Headache, Hematemesis, SOB - Allergy/Home Medications Allergies/Adverse Reactions: Allergies Allergy/AdvReac Type Severity Reaction Status Date / Time [place] Allergy Severe Rash Verified 06/08/17 11:35 PMH/Surg Hx/FS Hx/Imm Hx Endocrine History: Diabetes Other Cardiovascular History: DENIES: HTN - Surgical History Surgical History: Yes Surgery Procedure, Year, and Place: 1995- tubal ligation, GALL STONE REMOVAL 2009, 4 C-SECTIONS, KIDNEY STONES LITHOTRIPSY 2013, GASTRIC BYPASS 01/06/17 Other Surgical History: gallstone 'laser'. lithotripsy left sided kidney stones - Family History Known Family History: Positive: Hypertension, Diabetes, Other - Father: fatal [place] at age 72. - Social History Alcohol Use: None Alcohol Amount: 1 beer Substance Use Type: None Substance Use Comment - Amount & Last Used: TYLENOL #3 FOR PAIN Smoking Status (MU): Never Smoked Tobacco Type: Cigarettes Amount Used/How Often: 1/2-1 PPD X 23 YEARS Have You Smoked in the Last Year: No When Did the Patient Quit Smoking/Using Tobacco: 2004 Household Exposure Type: Cigarettes Cessation Counseling: Counseled 3+Min - 10 Min - on household exposure - Immunization History Most Recent Influenza Vaccination: 05/2016 Most Recent Tetanus Shot: Unsure Most Recent Pneumonia Vaccination: none Review of Systems Constitutional: Negative Skin: Negative Eyes: Negative ENT: Sore Throat, Sinus Congestion Respiratory: Cough Cardiovascular: Negative Gastrointestinal: Abdominal Pain - cramping prior to episodes of diarrhea, Vomiting, Diarrhea Genitourinary: Negative Motor: Negative Neurovascular: Negative Musculoskeletal: Other: - chronic back pain Neurological: Negative Psychological: Negative All Other Systems Reviewed And Are Negative: Yes Physical Exam Triage Information Reviewed: Yes Appearance: Well-Appearing, No Pain Distress, Well-Nourished Vital Signs: Initial Vital Signs Temp 98.2 F 06/08/17 11:32 Pulse 69 06/08/17 11:32 Resp 20 06/08/17 11:32 BP 134/88 06/08/17 11:32 Pulse Ox 100 06/08/17 11:32 Vital Signs Reviewed: Yes Eyes: Positive: Conjunctiva Clear. Negative: Discharge ENT: Positive: TMs normal. Negative: Tonsillar swelling, Tonsillar exudate, Trismus Neck exam: Normal Neck: Positive: Supple Respiratory: Positive: Lungs clear, Normal breath sounds, No respiratory distress, No accessory muscle use Cardiovascular: Positive: RRR, No Murmur Abdomen Description: Positive: Nontender, Soft. Negative: Distended, Guarding Musculoskeletal Exam: Normal Neurological: Positive: Alert, Muscle Tone Normal Psychological Exam: Normal Psychological: Positive: Age Appropriate Behavior Skin Exam: Normal Skin: Positive: Other - warm, dry, normal color Course/Dx - Course Course Of Treatment: Medications reviewed this visit. High blood pressure noted likely due to pt's condition. - Differential Dx - Multi-Symptom Provider Diagnoses: Elevated BP without diagnosis of HTN. Gastroenteritis Discharge - Discharge Plan Condition: Stable Disposition: HOME Prescriptions: Benzonatate CAP* [Tessalon 100 MG CAP*] 100 mg PO TID PRN #30 cap PRN Reason: Cough guaiFENesin ER TAB [Mucinex*] 600 mg PO BID PRN #1 box PRN Reason: Cough guaiFENesin/CODIEN 100MG-10MG* [Robitussin AC 100Mg-10Mg*] 5 - 10 ml PO BEDTIME PRN #100 udc MDD 10ml PRN Reason: Cough Patient Education Materials: Sinusitis (ED), Gastroenteritis (ED), Viral Syndrome (ED), Bronchospasm (ED) Forms: *Work Release Referrals: Katie Valente MD [Primary Care Provider] - Additional Instructions: TRY USING THE NETTI POT IN THE MORNINGS DISCUSSED. YOU MUST ALWAYS USE CLEAN WATER. INHALED BRONCHODILATORS: You have received a prescription for an inhaled bronchodilator -- a medication which stimulates the airways in the lung to dilate. This improves the flow of air in asthma, bronchitis, and emphysema. These medicines have some similarity to adrenaline, and can cause similar side effects: shakiness, racing heart, and a sense of nervousness. These side effects decrease with time. Contact your doctor if these side effects are severe. Do not over-use the medicine. Too-frequent use of the inhaler may make it ineffective. Call your doctor if the inhaler is not controlling your symptoms at the prescribed doses. COUGH-SUPPRESSANT & EXPECTORANT MEDICATION: You are to use a cough medication as needed for relief of symptoms. This medicine is a combination of an expectorant (to make the mucous thinner and more easily "coughed up") and a cough suppressant (to reduce the frequency of coughing). The cough-suppressant medicine is related to narcotics. You may experience mild nausea and sleepiness. Some patients who are very sensitive to narcotics may have stomach pain from this medicine. Taking the medicine with food reduces these side effects. Do not drive or work with machinery until you know how this medicine affects you. The expectorant should have no side effects. Iodine-containing expectorants (such as organidin) should not be taken by persons with active thyroid disease unless approved by your doctor. Call the doctor if you develop shortness of breath, hives, rash, itching, lightheadedness, or severe nausea and vomiting. EXPECTORANT MEDICATION: WE SENT IN A SCRIPT FOR MUCINEX SO THAT IT IS EASIER FOR YOU TO PICK THE RIGHT MED AT THE PHARMACY. HOWEVER, YOU CAN ALSO GO TO THE NATURAL FOOD STORE AND BUY PLAIN GUAIFENESIN WITHOU BINDERS OR FILLERS. An expectorant medicine has been prescribed. This type of drug makes mucous thinner, helping the sinuses, nose, and bronchial tubes to remain free of pus and mucous. Expectorants make a cough less severe and more comfortable, and help infected sinuses drain. In general, antihistamines defeat the purpose of the expectorant by making mucous thicker. They should be avoided unless specifically recommended by your physician. TESSALON PERLES: You have received a prescription for Tessalon Perles (benzonatate). This is a non-narcotic medicine for relief of cough. It usually works in about 15- 20 minutes and lasts around four hours. Tessalon Perles should be swallowed. They should not be chewed or dissolved in the mouth (this can produce temporary numbing of the mouth and choking can occur). If you develop any adverse effects such as wheezing, shortness of breath, hives, rash, itching, or lightheadedness, please return at once. Your blood pressure was elevated at this visit. That does not mean you have hypertension, it is probably due to your current condition. Please follow up with your primary care provider. The documentation as recorded by the Jann triplett Angela accurately reflects the service I personally performed and the decisions made by me, Piper Rivera DO.
== END 2017-06-08 14:25 | disposition home or self-care (01) ==
LOC: UCEAST 10:41
DX: K52.9 Noninfective gastroenteritis and colitis, unspecified (principal); R03.0 Elevated blood-pressure reading, without diagnosis of hypertension; R05 Cough; J02.9 Acute pharyngitis, unspecified; R09.81 Nasal congestion; G89.29 Other chronic pain; M54.9 Dorsalgia, unspecified; E11.9 Type 2 diabetes mellitus without complications; Z98.84 Bariatric surgery status; Z87.442 Personal history of urinary calculi; Z87.891 Personal history of nicotine dependence
CPT/HCPCS: 81003; 81025; 99212; G0463

== ENCOUNTER 2017-10-15 14:43 | Emergency (ER) | payer OTHER ==
[2017-10-15 14:55] VITALS: BP 140/59
--- NOTE | 2017-10-15 15:58 | UC ---
FLU HPI - HPI Summary HPI Summary: body aches cough, feverish but unknown fever, for a couple of days today while working at he [employer] she had a couple very brief episodes of vertigo. She drove herself to the urgent care to get checked for flu - History of Current Complaint Chief Complaint: UCGeneralIllness Stated Complaint: ACHY,DIZZY Time Seen by Provider: 10/15/17 15:05 Hx Obtained From: Patient Hx Last Menstrual Period: 09/07/16 ?: No Onset/Duration: Sudden Onset, Lasting Days - 2 Severity Currently: Mild Severity Initially: Mild Pain Intensity: 0 Associated Signs & Symptoms: Positive: Fever, Myalgia, Cough, Nasal Congestion Related Hx: Possible Flu/Infectious Exposure - Allergy/Home Medications Allergies/Adverse Reactions: Allergies Allergy/AdvReac Type Severity Reaction Status Date / Time [place] Allergy Rash Verified 10/15/17 14:55 Home Medications: Home Medications Biotin 1 tab PO DAILY 10/15/17 [History Confirmed 10/15/17] PMH/Surg Hx/FS Hx/Imm Hx Previously Healthy: Yes - Surgical History Surgical History: Yes Surgery Procedure, Year, and Place: 1995- tubal ligation, GALL STONE REMOVAL 2009, 4 C-SECTIONS, KIDNEY STONES LITHOTRIPSY 2013, GASTRIC BYPASS 01/06/17 Other Surgical History: gallstone 'laser'. lithotripsy left sided kidney stones - Family History Known Family History: Positive: Hypertension, Diabetes, Other - Father: fatal [place] at age 72. - Social History Occupation: Employed Full-time Lives: With Family Alcohol Use: None Alcohol Amount: 1 beer Substance Use Type: None Smoking Status (MU): Never Smoked Tobacco Type: Cigarettes Amount Used/How Often: 1/2-1 PPD X 23 YEARS Have You Smoked in the Last Year: No When Did the Patient Quit Smoking/Using Tobacco: 2004 Household Exposure Type: Cigarettes - Immunization History Most Recent Influenza Vaccination: 05/2016 Most Recent Tetanus Shot: Unsure Most Recent Pneumonia Vaccination: none Review of Systems Constitutional: Chills, Fatigue Skin: Negative Eyes: Negative ENT: Sore Throat, Ear Ache, Nasal Discharge, Sinus Congestion Respiratory: Cough Cardiovascular: Negative Gastrointestinal: Negative Genitourinary: Negative Motor: Negative Neurovascular: Negative Musculoskeletal: Arthralgia, Myalgia Neurological: Negative Psychological: Negative Is Patient Immunocompromised?: No All Other Systems Reviewed And Are Negative: Yes Physical Exam Triage Information Reviewed: Yes Appearance: Well-Appearing, No Pain Distress, Well-Nourished Vital Signs: Initial Vital Signs Temp 99.1 F 10/15/17 14:51 Pulse 80 10/15/17 14:51 Resp 24 10/15/17 14:51 BP 140/59 10/15/17 14:51 Pulse Ox 100 10/15/17 14:51 Vital Signs Reviewed: Yes Eye Exam: Normal Eyes: Positive: Conjunctiva Clear ENT Exam: Normal ENT: Positive: Normal ENT inspection, Hearing grossly normal, Pharynx normal, Nasal congestion, TMs normal, Uvula midline. Negative: Tonsillar swelling, Tonsillar exudate, Trismus, Muffled voice, Hoarse voice, Dental tenderness, Sinus tenderness Dental Exam: Normal Neck exam: Normal Neck: Positive: Supple, Nontender, No Lymphadenopathy Respiratory Exam: Normal Respiratory: Positive: Chest non-tender, Lungs clear, Normal breath sounds, No respiratory distress, No accessory muscle use Cardiovascular Exam: Normal Cardiovascular: Positive: RRR, No Murmur, Pulses Normal, Brisk Capillary Refill Musculoskeletal Exam: Normal Musculoskeletal: Positive: Strength Intact, ROM Intact, No Edema Neurological Exam: Normal Neurological: Positive: Alert, Muscle Tone Normal Psychological Exam: Normal Skin Exam: Normal Diagnostics - Laboratory Diagnostic Studies Completed/Ordered: Influenza A/B (-) Flu Course/Dx - Course Course Of Treatment: rest increase fluids tylenol ibuprofen follow blood pressure with pcp, return or go to ed for additional or worsening symptoms or if symptoms fail to resolve - Differential Dx/Diagnosis Provider Diagnoses: [place] illness, vertigo Discharge - Discharge Plan Condition: Stable Disposition: HOME Patient Education Materials: Viral Syndrome (ED), Hypertension (ED) Forms: *Work Release Referrals: Katie Vaelnte MD [Primary Care Provider] - 3 Days
== END 2017-10-15 16:20 | disposition home or self-care (01) ==
LOC: UCEAST 14:43
DX: B34.9 Viral infection, unspecified (principal); R42 Dizziness and giddiness; Z87.891 Personal history of nicotine dependence
CPT/HCPCS: 87502; 93005; 99212; G0463

== ENCOUNTER 2018-06-06 08:00 | Emergency (ER) | payer BC ==
--- OUTSIDE RECORDS SUMMARY | 2018-06-06 08:06 | XMS REPORT ---
:1970 External Reference #:[id number] Author Organization [facility] Address [address] [place] [address] Phone [phone] Care Team Providers Name Role Phone Katie Valente MD Primary Care Physician Unavailable Payers Type Date Identification Numbers Payment Provider Subscriber Commercial Effective: Policy Number: [employer] 2018 [id number] PayID: [id number] [address] [address] [place] [address] Commercial Expires: 2016 Policy Number: [id number] [place] [employer] Group Name: [id number] [address] PayID: [id number] [place] [address] Medigap Part B Effective: 2014 Policy Number: Medicaid Hang R Foy [id number] Expires: 2014 Group Name: 1 1 [address] PayID: [id number] [place] [address] Commercial Effective: Policy Number: [employer] Hang R 2013 [id number] Medicaid Foy Expires: 2014 Group Name: [id number] [address] [address] PayID: [id number] [place] [address] Medigap Part B Expires: 2014 Policy Number: [id number] Medicaid Hang R Foy Group Name: 1 1 [address] PayID: [id number] [place] [address] Commercial Effective: 2014 Policy Number: [id number] [employer] Tonie Foy Expires: 2016 Group Name: [id number] [address] PayID: [id number] [place] [address] Medigap Part B Effective: 2016 Policy Number: Medicaid Hang R Foy [id number] Expires: 2016 Group Name: 1 1 [address] PayID: [id number] [place] [address] Commercial Effective: 2016 Policy Number: [id number] [place] [employer] Group Number: [id number] [address] PayID: [id number] [place] [address] Problems Date Description Provider Status Onset: 12/29/2013 Asthma without status asthmaticus Ange Peraza N.P. Active Note: PFTs showing restrictive pattern, no bronchodilator response 04/15 Onset: 12/29/2013 Neurologic disorder associated with Ange Peraza, N.P. Active type 2 diabetes mellitus Onset: 01/27/2014 Obesity Ange Peraza N.P. Active Note: morbid Onset: 01/27/2014 Renal disorder associated with Ange Peraza N.P. Active type 2 diabetes mellitus Onset: 07/10/2014 Obstructive sleep apnea Nancy García MD Active syndrome Onset: 01/02/2015 Poor sleep pattern Saniya Adams DNP, RN, Active [facility]- Note: Hypersomnia with apnea Onset: Diabetic retinopathy Active Onset: 05/16/2016 Spinal stenosis of lumbar region Dawit Phillips M.D. Active Note: L4/L5 Onset: 06/09/2016 Vitamin D deficiency Katie Valente M.D. Active Onset: 01/28/2018 Impaired fasting glycaemia Katie Valente M.D. Active Onset: 06/09/2016 Anemia due to chronic blood loss Katie Valente M.D. Inactive Inactive: 07/30/2017 Note: menorrhagia X 3 yrs nl iron studies 2015 Onset: 12/29/2013 Diabetes mellitus Ange Peraza N.P. Resolved Resolved: 07/30/2017 Family History Date Family Member(s) Problem(s) Comments General Diabetes Father Diabetes Father ND Mother Alzheimer's Disease First Brother Diabetes Second Brother Diabetes Social History Type Date Description Comments Lives With Male Partner Occupation Works at [employer] Cigarette Use Former Cigarette Smoker ETOH Use Denies alcohol use Smoking Patient is a former smoker 1 pack a day x 7 yrs Recreational Drug Use Denies Drug Use Exercise Type/Frequency Exercises regularly General Hx Text 4 grown children Allergies, Adverse Reactions, Alerts Date Description Reaction Status Severity Comments 12/29/2013 NKDA active 02/20/2015 Strawberries active Medications Medication Date Status Form Strength Qnty SIG Indications Ordering Provider Fluconazole 05/13 Hx Tablets 100mg 7tabs 1 tab by B37.2 Katie /2018 mouth Valente, - daily x 7 M.D. Nystop 02/08 Active Powder [id number] 180gm apply to B37.2 Katie /2018 t/GM affected Valente, area twice M.D. a day for 7 days as needed Ferrous 10/07 Active Tablets 324(38Fe) 60tab take one D50.0 Katie Gluconate /2017 mg s tablet by Ambrosio, mouth M.D. twice a day Flonase Allergy 02/28 Active Suspension 50mcg/Act 16uni spray 1 J01.90 Kristan Relief /2015 ts spray in tate Hoover M.D. nostril once daily as needed Support 01/16 Active Misc 8-15MHG 2Pair as Kristan Compression /2015 directed Erasto Hoover/8-15MHG/Men M.DJennifer Compression 01/10 Active Misc Large 2Pair as I83.813 Kristan Stockings /2015 directed Molly Hoover Freestyle 03/14 Active Kit W/Device 1unit use as Ange Schulenburg Lite s directed Stu dx: calvin N.PJennifer Freestyle Lite 03/14 Active Strips 100un test up to Kristan Test its 4 times a benja Hoover M.D. code: 250.52 Freestyle 03/14 Active Misc 100un daily and Ange Lancets its as needed Stu dx: dm N.P. BD Pen 01/10 Active Misc 31G X 5 100un use as Ange Needle/Mini/Ultr mm its directed Stu, afine/31G X N.P. /" Insulin 12/29 Active Misc 29G X 30uni use one Ange Syringe/0.3ML/ 1/2" 0.3 ts syringe Stu, G X 1/2" ML daily with N.P. lantus insulin Blood Pressure 12/29 Active Misc 1unit use daily 796.2 Ange Monitor s or as Stu, Inflate directed N.P. Proventil HFA Active Aerosol 108(90Bas 1unit 1 puff(s) Kristan /0000 e) s inhalation Hoover, mcg/Act every 4 M.D. hours as needed Multivitamin Active Chewtabs Maxwell Unknown Adult s 2 tabs once a day Caltrate 600 Active Tablets 1 tab Unknown /0000 daily Vitamin B 12 Active Lozenges 5000mcg 1 by mouth Unknown /0000 every day Vitamin D3 Active Capsules 2000Unit 1 by mouth Unknown /0000 every day Biotin Active Capsules 1 by mouth Unknown /0000 every day Doxycycline 02/08 Hx Tablets 100mg 14tab 1 tablet N73.9 Katie Hyclate /2017 s twice a Valente, - day x 7 M.D. Fluconazole 02/08 Hx Tablets 100mg 4tabs 1 tab by B37.2 Katie /2017 mouth Valente, - daily x 5 M.D. Doxycycline 01/28 Hx Tablets 100mg 20tab 1 tablet N73.9 Katie Hyclate s twice a Valente, - day x 10 M.D. Vitamin D 01/27 Hx Tablets 400Unit 90tab 2000 units Katie (Cholecalciferol /2016 s daily Valente, ) - M.D. 07/30 Amoxicillin 01/01 Hx Tablets 875mg 20tab take one J06.9 Win s tablet by DARCY Mckenzie - mouth 01/11 twice a day x's 10 days Hydrocodone 12/29 Hx Solution 7.5-325mg 240ml 10ml-15ml Kristin Bitartrate/Aceta /2017 /15ML by mouth B. minophen every 4-6 [place], hours as FINANCIAL ANALYSIS CONSULTANT needed for pain Nystatin 10/10 Hx Powder 342656Hxl 180gm apply to B37.9 t/GM affected Valente, - areas M.D. 01/26 twice a day as needed for rash x 10 days Ergocalciferol 10 Hx Capsules 23618Jtiz 6caps 1 tab by E55.9 mouth Ambrosio, - every M.D. 01/27 week; taking (on hold) Vitamin D 04/15 Hx Tablets 1000Unit 1 capsule po q 7 Valente, - days M.D. 05/16 Benzonatate 02/28 Hx Capsules 100mg 30cap 1 by mouth J01.90 s 3x per day Aarti Hoover M.D. 05/16 Acetaminophen-Co 10/05 Hx Tablets 300-30mg 45tab 1-2 tab po M50.80 Katie deine # s every 6 Valente, - hours M.D. 05/13 Metformin HCL ER 09/28 Hx Tablets ER 1000mg 1 tablet Other (Osm) 24HR twice a Ordering - day by Provider 01/[address] 09/[address] 500mg 60tab 1 tabpo 2x M50.80 s per day Kiko - with food M.D. 11/08 Victoza 09/20 Hx Solution 18mg/3ML inject 1.8 Pen-Inject mg under - the skin 01/01 Novolog Flexpen 08/30 Hx Solution 100Unit/M sliding Pen-Inject L scale Aarti Hoover M.D. 08/30 Sulfamethoxazole 08/30 Hx Tablets 800-160mg 14tab 1 tab by L08.89 Kristan /Trimethoprim s mouth 2x Kiko - per day M.D. 09/28 Humalog Mix 05/25 Hx Supn (75-25)10 5unit 10 units E11.65 Kristan 75/25 Kwikpen 0Unit/ML s prior to Aarti Hoover meals 3 M.D. 08/30 times day. Fluconazole 07/25 Hx Tablets 150mg 1tabs 1 tab by 274.11 mouth x1 Gorman, FINANCIAL ANALYSIS CONSULTANT - 08/28 Nystatin 07/25 Hx Powder 257202Svz 1unit Apply 274.11 t/GM s powder Gorman, FINANCIAL ANALYSIS CONSULTANT - twice 01/01 daily to affected areas untill symptoms resolve Ceftin 07/24 Hx Tablets 250mg 14tab by mouth s twice a Ordering - day x 7 Provider Percocet 07/24 Hx Tablets 5-325mg 60tab 1-2 by s mouth Ordering - every 4 to Provider 10/31 6 hours as needed pain Zovirax 06/30 Hx Ointment 5% 15gm apply 5 054.9 Ange times Stu, - daily for N.P. 07/04 Novolog Flexpen 01/10 Hx Solution 100Unit/M 15ml 30 units Pen-Inject L at each Kiko, - meal as M.D. 05/25 well with sliding scale. Lantus 12/29 Hx Solution 100Unit/M 10uni inject L ts beneath Kiko, - the skin M.D. 06/30 55 units /2015 once daily at bedtime and 55 in the morning Aspirin 00 Hx Tablets 81mg 1 by mouth Unknown /0000 every day - 07/25 Vitamin B12 00 Hx Tablets 2500 1 tab Unknown /0000 daily - 01/01 Metformin HCL Hx Tablets 500mg 30tab 1 tab by Kristan / s mouth Kiko, - twice a M.D. Diphenhydramine Hx Tablets take 1 - 2 Unknown HCL /0000 tablets by - mouth as 01/01 needed. Relion Novolin N 00 Hx Suspension inject 20 Unknown /0000 units - daily 12/29 Multivitamins 00/ Hx Chewtabs 1 by mouth Unknown /0000 every day - 08/30 Novolog 00/00 Hx sliding Unknown /0000 scale (on - hold) 01/26 Sulfamethoxazole 00/00 Hx Tablets 800-160mg Unknown /Trimethoprim DS /0000 - 08/30 Lisinopril 00 Hx Tablets 10mg 30tab Take One Kristan /0000 s Tablet By Hoover, - Mouth Once M.D. 01/01 Tylenol Extra Hx Tablets 500mg 2 by mouth Unknown Strength /0000 as needed - 01/01 Lomotil Hx Tablets 2.5-0.025 1-2 tabs Unknown /0000 mg by mouth - four times 01/01 a day needed diarrhea Vitamin D2 00 Hx 1.25mg 1 capsule Unknown /0000 po q 7 - days 04/15 Multi For Her 00 Hx Capsules once a day Unknown With Iron /0000 otc - 01/01 Loperamide HCL Hx Capsules 2mg 2 qd Unknown /0000 Diphenhydramine Hx Capsules 25mg take 4 Unknown HCL /0000 tablet at - bedtime as 01/27 needed ( hold) Tylenol With Hx Tablets 300-30mg 1 tablet Unknown Codeine #3 /0000 by mouth - every 8 10/10 hours needed cough Lantus Hx Solution 100Unit/M 10 Units Unknown /0000 L SQ daily - 01/27 Control 00/ Hx daily Unknown /0000 - 10/07 Levonorgestrel/E Hx Tablets 0.15-30mg Take One Unknown thinyl Estradiol /0000 -mcg Tablet By - Mouth 01/01 Gabapentin Hx Capsules 100mg 90cap Take Two Katie /0000 s Capsules Aarti Valente By Mouth M.D. 01/01 Times A Day Nitrofurantoin Hx Capsules 100mg Unknown Monohydrate/Macr /0000 ocrystals Macrobid Hx Capsules 100mg Unknown /0000 Nystatin 00 Hx Powder [id number] apply Unknown /0000 t/GM twice daily until rash clears Doxycycline 00 Hx Tablets 100mg one bid Arjun Valente /0000 Aarti Wilson MD 02/08 Immunizations CPT Code Status Date Vaccine Lot # [id number] Given 05/13/2018 Influenza Virus Vaccine, Quadrivalent, Split, [id number] Preservative Free 18780 Given 05/13/2018 Pneumococcal Conjugate Vaccine 13 Valent For [id number] Intramuscular Use 55064 Given 07/30/2017 Influenza Virus Vaccine, Quadrivalent, Split, [id number] Preservative Free 85935 Given 06/09/2016 Influenza Virus Vaccine, Quadrivalent, Split [id number] Virus, [place] Use 18801 Given 05/25/2015 Influenza Virus Vaccine, Quadrivalent, Split, [id number] Preservative Free 18043 Given 06/30/2014 Hepatitis B Vaccine Adult Dosage 40237 Given 06/30/2014 Flu Vaccine Split Virus Preservative Free For [id number] Indiv 3Yr Older 56893 Given 03/09/2014 Hepatitis B Vaccine Adult Dosage [id number] 07275 Given 03/09/2014 Tdap - Tetanus/Diptheria/Acellular Pertussis [id number] 20440 Given 01/31/2014 Hepatitis B Vaccine Adult Dosage [id number] 53761 Given 01/31/2014 Pneumonia Vaccine [id number] 93471 Given 02/27/2010 Tdap - Tetanus/Diptheria/Acellular Pertussis [id number] Given 09/27/2009 Fluvirin Im 3Yrs And Older Vital Signs Date Vital Result Comment 05/13/2018 Height 64.5 inches 5'4.50" Weight 200.00 lb Heart Rate 68 /min BP Systolic Sitting 118 mmHg BP Diastolic Sitting 70 mmHg O2 % BldC Oximetry 99 % BMI (Body Mass Index) 33.8 kg/m2 04/27/2018 Height 64.5 inches 5'4.50" Weight 200.00 lb Heart Rate 76 /min BP Systolic Sitting 120 mmHg Rue large cuff BP Diastolic Sitting 66 mmHg Rue large cuff Respiratory Rate 16 /min O2 % BldC Oximetry 97 % BMI (Body Mass Index) 33.8 kg/m2 02/08/2018 Height 64.5 inches 5'4.50" Weight 201.00 lb Heart Rate 66 /min BP Systolic Sitting 130 mmHg BP Diastolic Sitting 60 mmHg Body Temperature 96.9 F O2 % BldC Oximetry 97 % BMI (Body Mass Index) 34.0 kg/m2 01/28/2018 Height 64.5 inches 5'4.50" Weight 200.00 lb Heart Rate 70 /min BP Systolic Sitting 118 mmHg BP Diastolic Sitting 60 mmHg O2 % BldC Oximetry 98 % BMI (Body Mass Index) 33.8 kg/m2 01/11/2018 Height 64.5 inches 5'4.50" Weight 200.00 lb Heart Rate 72 /min BP Systolic Sitting 140 mmHg BP Diastolic Sitting 80 mmHg Respiratory Rate 18 /min Body Temperature 97.6 F BMI (Body Mass Index) 33.8 kg/m2 11/06/2017 Weight 200.00 lb Heart Rate 68 /min BP Systolic Sitting 132 mmHg BP Diastolic Sitting 72 mmHg Body Temperature 97.4 F Pain Level 3 from knees up O2 % BldC Oximetry 98 % 10/12/2017 Height 64.5 inches 5'4.50" Weight 208.00 lb Heart Rate 78 /min BP Systolic 130 mmHg BP Diastolic 68 mmHg Respiratory Rate 18 /min Body Temperature 97.5 F BMI (Body Mass Index) 35.1 kg/m2 07/30/2017 Weight 217.50 lb Heart Rate 63 /min BP Systolic Sitting 120 mmHg BP Diastolic Sitting 62 mmHg Body Temperature 97.6 F O2 % BldC Oximetry 99 % 07/10/2017 Height 64.5 inches 5'4.50" Weight 219.00 lb Heart Rate 78 /min BP Systolic Sitting 128 mmHg BP Diastolic Sitting 78 mmHg Respiratory Rate 16 /min Body Temperature 98.0 F BMI (Body Mass Index) 37.0 kg/m2 04/17/2017 Height 64.5 inches 5'4.50" Weight 234.00 lb Heart Rate 60 /min BP Systolic 134 mmHg BP Diastolic 78 mmHg Respiratory Rate 16 /min Body Temperature 98.2 F BMI (Body Mass Index) 39.5 kg/m2 03/30/2017 Weight 237.75 lb Heart Rate 82 /min BP Systolic 120 mmHg BP Diastolic 60 mmHg Body Temperature 99.2 F O2 % BldC Oximetry 98 % 03/06/2017 Height 64.5 inches 5'4.50" Weight 250.00 lb Heart Rate 76 /min BP Systolic Sitting 128 mmHg BP Diastolic Sitting 74 mmHg Respiratory Rate 14 /min O2 % BldC Oximetry 98 % room air BMI (Body Mass Index) 42.2 kg/m2 02/20/2017 Height 64.5 inches 5'4.50" Weight 252.00 lb Heart Rate 78 /min BP Systolic Sitting 130 mmHg BP Diastolic Sitting 72 mmHg Respiratory Rate 16 /min Body Temperature 99.5 F BMI (Body Mass Index) 42.6 kg/m2 01/27/2017 Height 64.5 inches 5'4.50" Weight 262.38 lb Heart Rate 72 /min BP Systolic 130 mmHg BP Diastolic 74 mmHg Body Temperature 98.0 F O2 % BldC Oximetry 98 % BMI (Body Mass Index) 44.3 kg/m2 01/16/2017 Height 64.5 inches 5'4.50" Weight 266.00 lb Heart Rate 84 /min BP Systolic 126 mmHg BP Diastolic 80 mmHg Respiratory Rate 18 /min Body Temperature 99.1 F BMI (Body Mass Index) 44.9 kg/m2 01/01/2017 Height 64.5 inches 5'4.50" Weight 283.25 lb Heart Rate 82 /min BP Systolic Sitting 136 mmHg BP Diastolic Sitting 80 mmHg Body Temperature 99.0 F O2 % BldC Oximetry 98 % BMI (Body Mass Index) 47.9 kg/m2 12/29/2016 Height 64.5 inches 5'4.50" Weight 282.00 lb Heart Rate 80 /min BP Systolic 138 mmHg BP Diastolic 82 mmHg Respiratory Rate 18 /min Body Temperature 97.7 F BMI (Body Mass Index) 47.7 kg/m2 10/31/2016 Height 64.5 inches 5'4.50" Weight 290.00 lb Heart Rate 86 /min BP Systolic 130 mmHg BP Diastolic 82 mmHg Respiratory Rate 18 /min Body Temperature 98.6 F BMI (Body Mass Index) 49.0 kg/m2 10/07/2016 Weight 290.00 lb Heart Rate 84 /min BP Systolic Sitting 122 mmHg BP Diastolic Sitting 70 mmHg Respiratory Rate 15 /min O2 % BldC Oximetry 97 % 09/12/2016 Height 64.5 inches 5'4.50" Weight 294.00 lb Heart Rate 90 /min BP Systolic 132 mmHg BP Diastolic 70 mmHg Respiratory Rate 18 /min Body Temperature 98.5 F BMI (Body Mass Index) 49.7 kg/m2 08/22/2016 Height 64.5 inches 5'4.50" Weight 295.00 lb Heart Rate 72 /min BP Systolic 120 mmHg BP Diastolic 62 mmHg Respiratory Rate 18 /min Body Temperature 99.1 F BMI (Body Mass Index) 49.8 kg/m2 07/25/2016 Height 64.5 inches 5'4.50" Weight 297.00 lb Heart Rate 78 /min BP Systolic 126 mmHg BP Diastolic 72 mmHg Respiratory Rate 18 /min Body Temperature 98.8 F BMI (Body Mass Index) 50.2 kg/m2 06/30/2016 Height 64.5 inches 5'4.50" Weight 301.00 lb Heart Rate 84 /min BP Systolic 122 mmHg BP Diastolic 70 mmHg Respiratory Rate 18 /min Body Temperature 98.4 F BMI (Body Mass Index) 50.9 kg/m2 06/09/2016 Weight 298.00 lb Heart Rate 83 /min BP Systolic Sitting 126 mmHg BP Diastolic Sitting 82 mmHg Body Temperature 97.4 F O2 % BldC Oximetry 98 % 06/02/2016 Height 64.5 inches 5'4.50" Weight 297.00 lb Heart Rate 78 /min BP Systolic Sitting 134 mmHg BP Diastolic Sitting 74 mmHg Respiratory Rate 18 /min BMI (Body Mass Index) 50.2 kg/m2 05/16/2016 Height 64.5 inches 5'4.50" Weight 301.00 lb Heart Rate 78 /min BP Systolic Sitting 140 mmHg BP Diastolic Sitting 90 mmHg Pain Level 5 BMI (Body Mass Index) 50.9 kg/m2 04/15/2016 Weight 296.00 lb with shoes Heart Rate 95 /min BP Systolic Sitting 104 mmHg BP Diastolic Sitting 52 mmHg Body Temperature 95.9 F O2 % BldC Oximetry 98 % 02/29/2016 Weight 297.75 lb Heart Rate 93 /min BP Systolic Sitting 114 mmHg BP Diastolic Sitting 68 mmHg Body Temperature 982.0 F O2 % BldC Oximetry 97 % 01/22/2016 Weight 296.00 lb Heart Rate 96 /min BP Systolic Sitting 128 mmHg BP Diastolic Sitting 72 mmHg Body Temperature 98.1 F 01/11/2016 Weight 299.00 lb Heart Rate 97 /min BP Systolic Sitting 124 mmHg BP Diastolic Sitting 70 mmHg Body Temperature 99.0 F O2 % BldC Oximetry 98 % 11/09/2015 Weight 297.00 lb Heart Rate 94 /min BP Systolic Sitting 146 mmHg BP Diastolic Sitting 78 mmHg Body Temperature 98.3 F O2 % BldC Oximetry 97 % 10/05/2015 Height 64 inches 5'4" Weight 296.00 lb Heart Rate 95 /min BP Systolic 108 mmHg BP Diastolic 54 mmHg Body Temperature 98.0 F O2 % BldC Oximetry 98 % BMI (Body Mass Index) 50.8 kg/m2 09/28/2015 Height 64 inches 5'4" Weight 296.00 lb Heart Rate 99 /min BP Systolic 121 mmHg BP Diastolic 67 mmHg Body Temperature 99.1 F O2 % BldC Oximetry 95 % BMI (Body Mass Index) 50.8 kg/m2 09/21/2015 Height 64 inches 5'4" Weight 280.00 lb Heart Rate 83 /min BP Systolic Sitting 138 mmHg BP Diastolic Sitting 78 mmHg Respiratory Rate 18 /min O2 % BldC Oximetry 97 % BMI (Body Mass Index) 48.1 kg/m2 08/30/2015 Height 64 inches 5'4" Weight 286.00 lb Heart Rate 92 /min BP Systolic 130 mmHg BP Diastolic 81 mmHg Body Temperature 98.5 F O2 % BldC Oximetry 97 % BMI (Body Mass Index) 49.1 kg/m2 05/25/2015 Height 64 inches 5'4" Weight 282.25 lb Heart Rate 90 /min BP Systolic Sitting 126 mmHg BP Diastolic Sitting 82 mmHg Body Temperature 96.1 F Pain Level 1 O2 % BldC Oximetry 98 % BMI (Body Mass Index) 48.4 kg/m2 03/20/2015 Height 64 inches 5'4" Weight 278.00 lb Heart Rate 77 /min BP Systolic 128 mmHg BP Diastolic 78 mmHg Respiratory Rate 12 /min O2 % BldC Oximetry 98 % BMI (Body Mass Index) 47.7 kg/m2 02/20/2015 Height 64 inches 5'4" Weight 277.50 lb Heart Rate 80 /min BP Systolic Sitting 138 mmHg BP Diastolic Sitting 80 mmHg O2 % BldC Oximetry 97 % BMI (Body Mass Index) 47.6 kg/m2 01/12/2015 Height 64 inches 5'4" Weight 282.00 lb Heart Rate 80 /min BP Systolic Sitting 128 mmHg BP Diastolic Sitting 80 mmHg Body Temperature 98.6 F O2 % BldC Oximetry 98 % BMI (Body Mass Index) 48.4 kg/m2 01/02/2015 Height 64 inches 5'4" Weight 280.00 lb Heart Rate 88 /min BP Systolic Sitting 136 mmHg BP Diastolic Sitting 84 mmHg Respiratory Rate 18 /min O2 % BldC Oximetry 98 % BMI (Body Mass Index) 48.1 kg/m2 10/31/2014 Weight 283.00 lb Heart Rate 84 /min BP Systolic Sitting 120 mmHg BP Diastolic Sitting 64 mmHg O2 % BldC Oximetry 98 % 08/28/2014 Weight 277.75 lb Heart Rate 79 /min BP Systolic Sitting 110 mmHg BP Diastolic Sitting 62 mmHg Body Temperature 97.5 F O2 % BldC Oximetry 8 % 07/25/2014 Weight 274.00 lb Heart Rate 85 /min BP Systolic Sitting 119 mmHg BP Diastolic Sitting 66 mmHg Body Temperature 97.2 F O2 % BldC Oximetry 98 % 07/10/2014 Height 64 inches 5'4" Weight 287.00 lb Heart Rate 92 /min BP Systolic Sitting 138 mmHg BP Diastolic Sitting 80 mmHg Respiratory Rate 22 /min O2 % BldC Oximetry 98 % BMI (Body Mass Index) 49.3 kg/m2 Neck Circumference in inches 15.5 06/30/2014 Weight 278.25 lb Heart Rate 81 /min BP Systolic Sitting 125 mmHg BP Diastolic Sitting 75 mmHg Body Temperature 97.5 F O2 % BldC Oximetry 98 % 04/12/2014 Weight 283.00 lb Heart Rate 86 /min BP Systolic Sitting 124 mmHg BP Diastolic Sitting 82 mmHg 03/09/2014 Height 64.5 inches 5'4.50" Weight 288.25 lb Heart Rate 104 /min BP Systolic Sitting 128 mmHg BP Diastolic Sitting 70 mmHg Body Temperature 98.0 F BMI (Body Mass Index) 48.7 kg/m2 01/31/2014 Height 63.75 inches 5'3.75" Weight 288.75 lb Heart Rate 112 /min BP Systolic Sitting 108 mmHg BP Diastolic Sitting 66 mmHg Body Temperature 98.2 F BMI (Body Mass Index) 49.9 kg/m2 12/29/2013 Height 64 inches 5'4" Weight 289.50 lb Heart Rate 100 /min BP Systolic Sitting 146 mmHg BP Diastolic Sitting 88 mmHg Body Temperature 98.1 F BMI (Body Mass Index) 49.7 kg/m2 Results Test Date Test Result H/L Range Note Laboratory test 02/08/2018 [place]/Yeast: SEE RESULT BELOW 1 finding Vaginal Dna Laboratory test 01/28/2018 Hemoglobin A1c 5.8 5-7 finding CBC Auto Diff 11/03/2017 White Blood Count 7.4 10^3/uL 3.5-10.8 2 Red Blood Count 3.71 10^6/uL Low 4.0-5.4 2 Hemoglobin 11.5 g/dL Low 12.0-16.0 2 Hematocrit 34 % Low 35-47 2 Mean Corpuscular Volume 92 fL 80-97 2 Mean Corpuscular Hemoglobin 31 pg 27-31 2 Mean Corpuscular HGB Conc 34 g/dL 31-36 2 Red Cell Distribution Width 13 % 10.5-15 2 Platelet Count 250 10^3/uL 150-450 2 Mean Platelet Volume 9 um3 7.4-10.4 2 Abs Neutrophils 4.3 10^3/uL 1.5-7.7 2 Abs Lymphocytes 2.2 10^3/uL 1.0-4.8 2 Abs Monocytes 0.5 10^3/uL 0-0.8 2 Abs Eosinophils 0.3 10^3/uL 0-0.6 2 Abs Basophils 0 10^3/uL 0-0.2 2 Abs Nucleated RBC 0 10^3/uL 2 Granulocyte % 58.7 % 38-83 2 Lymphocyte % 30.2 % 25-47 2 Monocyte % 6.8 % 0-7 2 Eosinophil % 3.7 % 0-6 2 Basophil % 0.6 % 0-2 2 Nucleated Red Blood Cells % 0 2 Comp Metabolic Panel 11/03/2017 Sodium 136 mmol/L 133-145 2 Potassium 4.3 mmol/L 3.5-5.0 2 Chloride 102 mmol/L 101-111 2 Co2 Carbon Dioxide 26 mmol/L 22-32 2 Anion Gap 8 mmol/L 2-11 2 Glucose 118 mg/dL High 70-100 2 Blood Urea Nitrogen 16 mg/dL 6-24 2 Creatinine 0.42 mg/dL Low 0.51-0.95 2 BUN/Creatinine Ratio 38.1 High 8-20 2 Calcium 9.5 mg/dL 8.6-10.3 2 Total Protein 6.7 g/dL 6.4-8.9 2 Albumin 4.0 g/dL 3.2-5.2 2 Globulin 2.7 g/dL 2-4 2 Albumin/Globulin Ratio 1.5 1-3 2 Total Bilirubin 0.70 mg/dL 0.2-1.0 2 Alkaline Phosphatase 107 U/L High 34-104 2 Alt 25 U/L 7-52 2 Ast 18 U/L 13-39 2 Egfr Non- 160.4 >60 2 Egfr 206.2 >60 2, 3 Iron & Iron Binding Capacity 11/03/2017 Iron 115 g/dL 50-212 2 Unsaturated Iron Binding 200 g/dL 2 Total Iron Binding Capacity 315 g/dL 250-450 2 % Iron Saturation 37 % 15-55 2 Laboratory test finding 11/03/2017 Ferritin 50.3 ng/mL 11-307 2, 4 Vitamin B12 > 1450 pg/mL High 180-914 2, 5 Folic Acid (Folate) > 20.00 ng/mL >3.99 2, 6 Vitamin D Total 25(Oh) 33.4 ng/mL 20-50 2, 7 Vitamin B1 (Whole Blood) 164 nmol/L 70-180 2, 8 Vitamin E Level 12.7 mg/L 5.5 - 17.0 2, 9 Rapid Influenza A & B 10/15/2017 Influenza A Molecular NEGATIVE Negative 10 Molecular Influenza B Molecular NEGATIVE Negative Laboratory test finding 07/30/2017 Hemoglobin A1c 4.4 Low 5-7 Urine Microalbumin Random 07/30/2017 Ur Microalbumin (mg/L) < 15.0 mg/L 11 Urine Creatinine 119.21 mg/dL 11 Urine Microalbumin/Creatinine TNP ug/mg <31 11, 12 Poc Urinalysis 06/08/2017 Poc Glucose, Urine Negative Negative Poc Bilirubin, Urine Negative Negative Poc Ketone, Urine Negative Negative Poc Specific [place], Urine 1.025 1.010-1.030 Poc Blood, Urine 3+ Negative Poc pH, Urine 5.5 5-9 Poc Protein, Urine 1+ Negative Poc Urobilinogen, Urine 0.2 Negative Poc Nitrite, Urine Negative Negative Poc Leukocytes, Urine Negative Negative Poc Color, Urine Dark yellow Poc Clarity, Urine Cloudy 13 Urine Culture And 04/09/2017 Urine Culture SEE RESULT BELOW 14, 15 Sensitivities Laboratory test finding 04/09/2017 Poc , Negative Negative 16 Urine Poc Urinalysis 04/09/2017 Poc Glucose, Negative Negative Urine Poc Bilirubin, Urine 1+ Negative Poc Ketone, Urine Negative Negative Poc Specific [place], Urine >=1.030 1.010-1.030 Poc Blood, Urine 3+ Negative Poc pH, Urine 6.0 5-9 Poc Protein, Urine Negative Negative Poc Urobilinogen, Urine 0.2 Negative Poc Nitrite, Urine Positive Negative Poc Leukocytes, Urine Negative Negative Poc Color, Urine Dark yellow Poc Clarity, Urine Slightly Cloudy 17 Rapid Influenza A & B 04/09/2017 Influenza A Molecular NEGATIVE Negative 18 Molecular Influenza B Molecular NEGATIVE Negative Laboratory test finding 04/09/2017 Rapid Strep Molecular Negative Negative 19 Laboratory test finding 01/27/2017 Vitamin D Total 25(Oh) 34.7 ng/mL 30- 50 Laboratory test finding 01/27/2017 Hemoglobin A1c 5.6 5-7 Basic Metabolic Panel 12/29/2016 Sodium 140 mmol/L 133-145 20 Potassium 4.3 mmol/L 3.5-5.0 20 Chloride 105 mmol/L 101-111 20 Co2 Carbon Dioxide 28 mmol/L 22-32 20 Anion Gap 7 mmol/L 2-11 20 Glucose 77 mg/dL 70-100 20 Blood Urea Nitrogen 13 mg/dL 6-24 20 Creatinine 0.51 mg/dL 0.51-0.95 20 BUN/Creatinine Ratio 25.5 High 8-20 20 Calcium 9.2 mg/dL 8.6-10.3 20 Egfr Non- 128.7 >60 20 Egfr 165.5 >60 20, 21 CBC No Diff 12/29/2016 White Blood Count 11.6 10^3/uL High 3.5-10.8 20 Red Blood Count 4.16 10^6/uL 4.0-5.4 20 Hemoglobin 12.0 g/dL 12.0-16.0 20 Hematocrit 37 % 35-47 20 Mean Corpuscular Volume 89 fL 80-97 20 Mean Corpuscular Hemoglobin 29 pg 27-31 20 Mean Corpuscular HGB Conc 33 g/dL 31-36 20 Red Cell Distribution Width 13 % 10.5-15 20 Platelet Count 283 10^3/uL 150-450 20 Mean Platelet Volume 9 um3 7.4-10.4 20 Laboratory test finding 09/05/2016 Vitamin D Total 25(Oh) 22.8 ng/mL Low 30-50 Laboratory test finding 08/18/2016 Rapid Strep Molecular Negative Negative 22 Lipid Profile 05/30/2016 Triglycerides 96 mg/dL 23 (Trig/Chol/HDL) Cholesterol 145 mg/dL 24 HDL Cholesterol 50.4 mg/dL 25 LDL Cholesterol 75 mg/dL 26 Comp Metabolic Panel 05/30/2016 Sodium 137 mmol/L 133-145 Potassium 4.3 mmol/L 3.5-5.0 Chloride 105 mmol/L 101-111 Co2 Carbon Dioxide 26 mmol/L 22-32 Anion Gap 6 mmol/L 2-11 Glucose 84 mg/dL 70-100 Blood Urea Nitrogen 16 mg/dL 6-24 Creatinine 0.47 mg/dL Low 0.51-0.95 BUN/Creatinine Ratio 34.0 High 8-20 Calcium 8.6 mg/dL 8.6-10.3 Total Protein 6.8 g/dL 6.4-8.9 Albumin 3.5 g/dL 3.2-5.2 Globulin 3.3 g/dL 2-4 Albumin/Globulin Ratio 1.1 1-3 Total Bilirubin 0.80 mg/dL 0.2-1.0 Alkaline Phosphatase 82 U/L 34-104 Alt 19 U/L 7-52 Ast 14 U/L 13-39 Egfr Non- 141.4 >60 Egfr 181.9 >60 27 CBC Auto Diff 05/30/2016 White Blood Count 11.0 10^3/uL High 3.5-10.8 Red Blood Count 3.75 10^6/uL Low 4.0-5.4 Hemoglobin 10.8 g/dL Low 12.0-16.0 Hematocrit 33 % Low 35-47 Mean Corpuscular Volume 88 fL 80-97 Mean Corpuscular Hemoglobin 29 pg 27-31 Mean Corpuscular HGB Conc 33 g/dL 31-36 Red Cell Distribution Width 14 % 10.5-15 Platelet Count 260 10^3/uL 150-450 Mean Platelet Volume 9 um3 7.4-10.4 Abs Neutrophils 6.5 10^3/uL 1.5-7.7 Abs Lymphocytes 3.3 10^3/uL 1.0-4.8 Abs Monocytes 0.7 10^3/uL 0-0.8 Abs Eosinophils 0.4 10^3/uL 0-0.6 Abs Basophils 0.1 10^3/uL 0-0.2 Abs Nucleated RBC 0.01 10^3/uL Granulocyte % 59.4 % 38-83 Lymphocyte % 30.1 % 25-47 Monocyte % 6.6 % 1-9 Eosinophil % 3.4 % 0-6 Basophil % 0.5 % 0-2 Nucleated Red Blood Cells % 0 Iron & Iron Binding Capacity 05/30/2016 Iron 106 g/dL 50-212 Unsaturated Iron Binding 247 g/dL Total Iron Binding Capacity 353 g/dL 250-450 % Iron Saturation 30 % 15-55 Laboratory test finding 05/30/2016 Cortisol 9.63 ?g/dL 28 TSH (Thyroid Stim Horm) 2.23 mcIU/mL 0.34-5.60 29 Ferritin 51.4 ng/mL 11-307 30 Folic Acid (Folate) > 20.00 ng/mL >3.99 31 Vitamin B12 962 pg/mL High 180-914 32 Vitamin D Total 25(Oh) 14.9 ng/mL Low 30-50 33 Vitamin E Level 7.3 mg/L 5.5 - 17.0 34 Vitamin B1, WB 141 nmol/L 70-180 35 Laboratory test finding 05/30/2016 Vitamin E Level 7.3 mg/L 5.5 - 17.0 36 Rapid Influenza A & B 11/07/2015 Influenza A Molecular NEGATIVE Negative 37 Molecular Influenza B Molecular NEGATIVE Negative Laboratory test finding 11/07/2015 Throat-Beta Strept SEE RESULT BELOW 38 Drug Abuse 20 Urine 10/05/2015 Urine Amphetamine Negative ng/mL 39 Urine Barbiturates Negative ng/mL 40 Urine Benzodiazepines Negative ng/mL 41 Urine Cocaine Negative ng/mL 42 Urine Methadone Negative ng/mL 43 Urine Opiates Negative ng/mL 44 Urine Phencyclidine Negative ng/mL Cutoff: 25 Urine Tetrahydrocannabinol Negative ng/mL Cutoff: 20 45 Urine Oxycodone Negative ng/mL 46 Laboratory test finding 05/25/2015 Hemoglobin A1c 8.7 High 5-7 Laboratory test finding 02/20/2015 Cytology SEE RESULT BELOW 47 HPV Rna Ww/Reflex Genotype Negative Negative 48 Laboratory test finding 02/20/2015 Hemoglobin A1c 10.2 High 5-7 Lipid Profile (Trig/Chol/HDL) 02/05/2015 Triglycerides 108 mg/dL 49, 50 Cholesterol 165 mg/dL 49, 51 HDL Cholesterol 48.4 mg/dL 49, 52 LDL Cholesterol 95 mg/dL 49, 53 Comp Metabolic Panel 02/05/2015 Sodium 135 mmol/L 133-145 49 Potassium 4.3 mmol/L 3.5-5.0 49 Chloride 100 mmol/L Low 101-111 49 Co2 Carbon Dioxide 28 mmol/L 22-32 49 Anion Gap 7 mmol/L 2-11 49 Glucose 227 mg/dL High 70-100 49 Blood Urea Nitrogen 12 mg/dL 6-24 49 Creatinine 0.50 mg/dL Low 0.51-0.95 49 BUN/Creatinine Ratio 24.0 High 8-20 49 Calcium 9.0 mg/dL 8.6-10.3 49 Total Protein 6.8 g/dL 6.4-8.9 49 Albumin 3.6 g/dL 3.2-5.2 49 Globulin 3.2 g/dL 2-4 49 Albumin/Globulin Ratio 1.1 1-3 49 Total Bilirubin 0.40 mg/dL 0.2-1.0 49 Alkaline Phosphatase 109 U/L High 34-104 49 Alt 16 U/L 7-52 49 Ast 12 U/L Low 13-39 49 Egfr Non- 132.8 >60 49 Egfr 170.8 >60 49, 54 Urine Microalbumin Random 01/12/2015 Ur Microalbumin (mg/L) 82.0 mg/L Urine Creatinine 49.15 mg/dL Urine Microalbumin/Creatinine 166.8 ug/mg High <31 Laboratory test finding 10/31/2014 Hemoglobin A1c 9.0 High 5-7 Laboratory test finding 07/31/2014 Inr 0.90 0.85-1.06 CBC Auto Diff 07/18/2014 White Blood Count 14.5 10^3/uL High 4.8-10.8 Red Blood Count 4.27 10^6/uL 4.0-5.4 Hemoglobin 12.8 g/dL 12.0-16.0 Hematocrit 39 % 35-47 Mean Corpuscular Volume 91 fL 80-97 Mean Corpuscular Hemoglobin 30 pg 27-31 Mean Corpuscular HGB Conc 33 g/dL 31-36 Red Cell Distribution Width 13 % 10.5-15 Platelet Count 224 10^3/uL 150-450 Mean Platelet Volume 10 um3 7.4-10.4 Abs Neutrophils 12.1 10^3/uL High 1.5-7.7 Abs Lymphocytes 1.4 10^3/uL 1.0-4.8 Abs Monocytes 0.9 10^3/uL High 0-0.8 Abs Eosinophils 0 10^3/uL 0-0.6 Abs Basophils 0.1 10^3/uL 0-0.2 Abs Nucleated RBC 0.01 10^3/uL Granulocyte % 83.3 % High 38-83 Lymphocyte % 9.5 % Low 25-47 Monocyte % 6.5 % 1-9 Eosinophil % 0.2 % 0-6 Basophil % 0.5 % 0-2 Nucleated Red Blood Cells % 0.1 Comp Metabolic Panel 07/18/2014 Sodium 129 mmol/L Low 133-145 Potassium 4.0 mmol/L 3.5-5.0 55 Chloride 97 mmol/L Low 101-111 Co2 Carbon Dioxide 26 mmol/L 22-32 Anion Gap 6 mmol/L 2-11 Glucose 366 mg/dL High 70-100 Blood Urea Nitrogen 11 mg/dL 6-24 Creatinine 0.75 mg/dL 0.51-0.95 BUN/Creatinine Ratio 14.7 8-20 Calcium 8.5 mg/dL Low 8.6-10.3 Total Protein 7.0 g/dL 6.4-8.9 Albumin 3.4 g/dL 3.2-5.2 Globulin 3.6 g/dL 2-4 Albumin/Globulin Ratio 0.9 Low 1-3 Total Bilirubin 1.10 mg/dL High 0.2-1.0 Alkaline Phosphatase 107 U/L High 34-104 Alt 19 U/L 7-52 Ast 14 U/L 13-39 Egfr Non- 83.2 >60 Egfr 107.0 >60 56 Laboratory test 07/18/2014 C Reactive Protein 125.68 mg/L High < 5.00 57 finding Inr/Protime 07/18/2014 Inr 1.12 High 0.85-1.06 Laboratory test 07/18/2014 Activated Partial 35.4 seconds 24.0-36.1 finding Thrombo Time Lactic Acid 1.4 mmol/L 0.5-2.2 Urine Culture And Sensitivities 07/18/2014 Urine Culture (SEE NOTE) 58 Laboratory test finding 06/30/2014 Hemoglobin A1c 10.6 High 5-7 Laboratory test finding 04/12/2014 Hemoglobin A1c 11.2 High 5-7 Laboratory test finding 12/29/2013 Hemoglobin A1c 11.2 High 5-7 Comp Metabolic Panel 12/29/2013 Sodium 135 mmol/L 133-145 Potassium 4.3 mmol/L 3.7-5.6 Chloride 99 mmol/L Low 101-111 Co2 Carbon Dioxide 30 mmol/L 22-32 Anion Gap 6 mmol/L 2-11 Glucose 255 mg/dL High 70-100 Blood Urea Nitrogen 7 mg/dL 6-24 Creatinine 0.48 mg/dL Low 0.51-0.95 BUN/Creatinine Ratio 14.6 8-20 Calcium 9.0 mg/dL 8.6-10.3 Total Protein 7.4 g/dL 6.4-8.9 Albumin 3.5 g/dL 3.2-5.2 Globulin 3.9 g/dL 2-4 Albumin/Globulin Ratio 0.9 Low 1-3 Total Bilirubin 0.80 mg/dL 0.2-1.0 Alkaline Phosphatase 106 U/L High 34-104 Alt 30 U/L 7-52 Ast 27 U/L 13-39 Egfr Non- 139.9 >60 Egfr 179.9 >60 59 Urine Microalbumin Random 12/29/2013 Ur Microalbumin (mg/L) 47.0 mg/dL < 30 60 Urine Creatinine 147.51 mg/dL Urine Microalbumin/Creatinine 31.8 High Less Than 31 Lipid Profile (Trig/Chol/HDL) 12/29/2013 Triglycerides 162 mg/dL 61 Cholesterol 176 mg/dL 62 HDL Cholesterol 44.7 mg/dL 63 LDL Cholesterol 99 mg/dL 64 1 SEE RESULT BELOW Name: HANG FOY : [address]: Katie Valente MD Acct: [id number] Unit: [id number] AGE: 47 Location: [facility] Re02/08/18 SEX: F Status: REG REF SPEC: [id number] PAWAN: 02/08/[address] [facility] [address]: Katie Valente MD REQ: [id number] RECD: 02/08/181234 STATUS: COMP _ SOURCE: VAGINAL SPDESC: ORDERED: Enoc,Yeast DNA COMMENTS: [id number] Would you like to order Trichomonas Vaginalis testing? N Procedure Result Reported Site Gardnerella/Yeast: Vaginal DNA Final 02/09/18- 1015 ML Organism 1 Negative Gardnerella Organism 2 Negative Tammy The presence of G. vaginalis, although suggestive, is not diagnostic for bacterial vaginosis. Results should be interpreted in conjuction with other clinical and laboratory data available. Women with vaginal discharge should be evaluated for risk factors of cervicitis and pelvic inflammatory disease, toxic shock syndrome (S.aureus), and if present, evaluated for organisms not included in this assay such as N. gonorrhoeae, C. trachomatis, Mobiluncus, Mycoplasma and/or Prevotella. Mixed infections may occur. The performance of this test on patient specimens collected during or immediately after antimicrobial therapy is unknown. The presence or absence of Tammy species, or G. vaginalis cannot be used as a test for therapeutic success or failure. * ML - Main Lab . END OF REPORT DEPARTMENT OF PATHOLOGY, [address] [place] [address] Leobardo Sheets M.D. Director [facility] # [id number] 2 FASTING 3 Because ethnic data is not always readily available, this report includes an eGFR for both -Americans and non- Americans. The National Kidney Disease Education Program (NKDEP) does not endorse the use of the MDRD equation for patients that are not between the ages of 18 and 70, are , have extremes of body size, muscle mass, or nutritional status, or are non- or non-. According to the National Kidney Foundation, irrespective of diagnosis, the stage of the disease is based on the level of kidney function: Stage Description GFR(mL/min/1.73 m(2)) 1 Kidney damage with normal or decreased GFR 90 2 Kidney damage with mild decrease in GFR 60-89 3 Moderate decrease in GFR 30-59 4 Severe decrease in GFR 15-29 5 Kidney failure <15 (or dialysis) 4 FASTING 5 Normal Range 180 to 914 Indeterminate Range 145 to 180 Deficient Range <145 6 FASTING 7 FASTING 8 ADDITIONAL INFORMATION This test was developed and its performance characteristics determined by [facility] in a manner consistent with CLIA requirements. This test has not been cleared or approved by the U.S. Food and Drug Administration. Test Performed by: [facility] [place] [address] 9 ADDITIONAL INFORMATION This test was developed and its performance characteristics determined by [facility] in a manner consistent with CLIA requirements. This test has not been cleared or approved by the U.S. Food and Drug Administration. Test Performed by: [facility] [place] [address] 10 Line Maintenance Technician: [id number] Unable to calculate due to low microalbumin 13 Line Maintenance Technician: [id number] SEE RESULT BELOW Name: FELICITA FOYO : [address]: Celestine Payton MD Acct: [id number] Unit: [id number] AGE: 46 Location: [facility] Re04/09/17 SEX: F Status: DEP ER SPEC: [id number] PAWAN: 04/09/17-[address] [facility] [address]: Celestine Payton MD REQ: [id number] RECD: 04/10/17-1037 STATUS: DOREEN COLON DR: Katie Valente MD _ SOURCE: URINE [facility]: ORDERED: Urine Culture COMMENTS: [id number] Procedure Result Reported Site Urine Culture Final 04/12/17- 08 ML No growth of clinically significant organisms * ML - MAIN LAB ([facility]) . END OF REPORT * ML=Testing performed at Main Lab DEPARTMENT OF PATHOLOGY, [address] [place] [address] Leobardo Sheets M.D. Director [facility] # [id number] 16 Line Maintenance Technician: [id number] If is still suspected, please repeat test after 48 to 72 hours. 17 Line Maintenance Technician: [id number] 18 Line Maintenance Technician: [id number] 19 Line Maintenance Technician: [id number] 21 Because ethnic data is not always readily available, this report includes an eGFR for both -Americans and non- Americans. The National Kidney Disease Education Program (NKDEP) does not endorse the use of the MDRD equation for patients that are not between the ages of 18 and 70, are , have extremes of body size, muscle mass, or nutritional status, or are non- or non-. According to the National Kidney Foundation, irrespective of diagnosis, the stage of the disease is based on the level of kidney function: Stage Description GFR(mL/min/1.73 m(2)) 1 Kidney damage with normal or decreased GFR 90 2 Kidney damage with mild decrease in GFR 60-89 3 Moderate decrease in GFR 30-59 4 Severe decrease in GFR 15-29 5 Kidney failure <15 (or dialysis) 22 Line Maintenance Technician: [id number] CATHERINETESFAYE ROJAS 23 Desirable <150 Borderline high 150-199 High 200-499 Very High >500 24 Desirable <200 Borderline high 200-239 High >239 25 Low <40 Desirable: 40-60 High: >60 26 Desirable: <100 mg/dL Near Optimal: 100-129 mg/dL Borderline High: 130-159 mg/dL High: 160-189 mg/dL Very High: >189 mg/dL 27 Because ethnic data is not always readily available, this report includes an eGFR for both -Americans and non- Americans. The National Kidney Disease Education Program (NKDEP) does not endorse the use of the MDRD equation for patients that are not between the ages of 18 and 70, are , have extremes of body size, muscle mass, or nutritional status, or are non- or non-. According to the National Kidney Foundation, irrespective of diagnosis, the stage of the disease is based on the level of kidney function: Stage Description GFR(mL/min/1.73 m(2)) 1 Kidney damage with normal or decreased GFR 90 2 Kidney damage with mild decrease in GFR 60-89 3 Moderate decrease in GFR 30-59 4 Severe decrease in GFR 15-29 5 Kidney failure <15 (or dialysis) 28 AM 8.7-22.4 PM <10 29 PT IS FASTING 30 PT IS FASTING 31 PT IS FASTING 32 Normal Range 180 to 914 Indeterminate Range 145 to 180 Deficient Range <145 33 PT IS FASTING 34 ADDITIONAL INFORMATION This test was developed and its performance characteristics determined by [facility] in a manner consistent with CLIA requirements. This test has not been cleared or approved by the U.S. Food and Drug Administration. Test Performed by: [facility] - [place] [id number] Can Pusher: George Mijares II, M.D., Ph.D. 35 INTERPRETIVE INFORMATION: Vitamin B1, Whole Blood This assay measures the concentration of thiamine diphosphate (TDP), the primary active form of vitamin B1. Approximately 90 percent of vitamin B1 present in whole blood is TDP. Thiamine and thiamine monophosphate, which comprise the remaining 10 percent, are not measured. Test developed and characteristics determined by [facility]. See Compliance Statement B: [employer]/ Performed by [facility], [address] [place] [id number] [email or web address], Zane Montez MD - Lab. Director Test Performed by: [facility] [address] [place] [address] 36 ADDITIONAL INFORMATION This test was developed and its performance characteristics determined by [facility] in a manner consistent with CLIA requirements. This test has not been cleared or approved by the U.S. Food and Drug Administration. Test Performed by: [facility] - [address] [address] Can Pusher: George Mijares II, M.D., Ph.D. 37 Line Maintenance Technician: [id number] CHRIS MAHER 38 SEE RESULT BELOW Name: HANG FOY : [address]: Luis Carolina MD Acct: [id number] Unit: [id number] AGE: 45 Location: [facility] Re11/07/15 SEX: F Status: DEP ER SPEC: [id number] PAWAN: 11/07/15-[address] [facility] [address]: Ira Cueva NP REQ: [id number] RECD: 11/07/15 STATUS: DOREEN COLON DR: Kristan Carolina MD _ SOURCE: THROAT SPDESC: ORDERED: Throat Beta Str Procedure Result Reported Site Throat Beta Strep Culture Final 11/09/15- 1049 ML Negative For Group A Beta Streptococcus * ML - [facility] ([facility]) . END OF REPORT * ML=Testing performed at Main Lab DEPARTMENT OF PATHOLOGY, [address] [place] [address] Leobardo Sheets M.D. Director [place] # [id number] REFERENCE VALUE Cutoff: 500 40 REFERENCE VALUE Cutoff: 200 41 REFERENCE VALUE Cutoff: 200 42 REFERENCE VALUE Cutoff: 150 43 REFERENCE VALUE Cutoff: 150 44 REFERENCE VALUE Cutoff: 300 45 ADDITIONAL INFORMATION This report is intended for use in clinical monitoring or management of patients. It is not intended for use in employment-related testing. 46 REFERENCE VALUE Cutoff: 100 ADDITIONAL INFORMATION This report is intended for use in clinical monitoring or management of patients. It is not intended for use in employment-related testing. Test Performed by: [place] [address] Can Pusher: George Mijares II, M.D., Ph.D. 47 SEE RESULT BELOW Name: HANG FOY : [address]: Kristan Hoover MD Acct: [id number] Unit: [id number] AGE: 44 Location: [facility] Re02/20/15 SEX: F Status: REG REF SPEC: [id number] PAWAN: 02/20/15-[address]: Kristan Hoover MD REQ: [id number] RECD: 02/20/15-5117 STATUS: SOUT _ ORDERED: IMAGE ANALYSIS, HPV/Thin Prep, HPV 16/18 GENE FINAL DIAGNOSIS Negative for Intraepithelial lesion or Malignancy Shift in [place] suggestive of bacterial vaginosis A. Ectocervical/Endocervical Specimen Adequacy: Satisfactory of evaluation Transformation zone component identified No menstrual history given Patient Information: HPV: High risk HPV RNA testing regardless of pap results. HPV 16/18 Genotype for HPV pos Actual Specimen Date: 02/20/15 LMP If Unknown: Last Menstrual Period Not Given. ?: N Post Menopausal?: N Previous Abnormal Pap Smears?:N Date Time Test Result Flag (u) Normal Range 02/20/15 1000 HPV RNA RFLX GE Negative Negative The high-risk HPV types detected by the assay include: 16, 18, 31, 33, 35, 39, 45, 51, 52, 56, 58, 59, 66, and 68. Signed EVELIA Weston (ASCP) 02/21/15 1320 This Pap test was evaluated with the assistance of the [employer] Test Imaging System. Due to cytologic findings at the development technical lead microscope, comprehensive manual rescreening by a Senior Market Research Analyst may be required. The Pap Smear is a screening test designed to aid in the detection of premalignant and malignant conditions of the uterine cervix. It is not a diagnostic procedure and should not be used as the sole means of detecting cervical cancer. Both false- positive and false- negative reports do occur. Depending on your risk status, a Pap smear should be obtained and evaluated every 1-3 years. END OF REPORT * ML=Testing performed at Main Lab DEPARTMENT OF PATHOLOGY, [address] [place] [address] Leobardo Sheets M.D. Director [facility] # [id number] RUN DATE: 02/21/15 [facility] LAB LIVE PAGE 1 Patient: FOYHANG [id number] (Continued) 46 The high-risk HPV types detected by the assay include: 16, 18, 31, 33, 35, 39, 45, 51, 52, 56, 58, 59, 66, and 68. 49 PT IS FASTING 50 Desirable <150 Borderline high 150-199 High 200-499 Very High >500 51 Desirable <200 Borderline high 200-239 High >239 52 Low <40 Desirable: 40-60 High: >60 53 Desirable: <100 mg/dL Near Optimal: 100-129 mg/dL Borderline High: 130-159 mg/dL High: 160-189 mg/dL Very High: >189 mg/dL 54 Because ethnic data is not always readily available, this report includes an eGFR for both -Americans and non- Americans. The National Kidney Disease Education Program (NKDEP) does not endorse the use of the MDRD equation for patients that are not between the ages of 18 and 70, are , have extremes of body size, muscle mass, or nutritional status, or are non- or non-. According to the National Kidney Foundation, irrespective of diagnosis, the stage of the disease is based on the level of kidney function: Stage Description GFR(mL/min/1.73 m(2)) 1 Kidney damage with normal or decreased GFR 90 2 Kidney damage with mild decrease in GFR 60-89 3 Moderate decrease in GFR 30-59 4 Severe decrease in GFR 15-29 5 Kidney failure <15 (or dialysis) 55 Potassium reference range changed effective 07/02/14 56 Because ethnic data is not always readily available, this report includes an eGFR for both -Americans and non- Americans. The National Kidney Disease Education Program (NKDEP) does not endorse the use of the MDRD equation for patients that are not between the ages of 18 and 70, are , have extremes of body size, muscle mass, or nutritional status, or are non- or non-. According to the National Kidney Foundation, irrespective of diagnosis, the stage of the disease is based on the level of kidney function: Stage Description GFR(mL/min/1.73 m(2)) 1 Kidney damage with normal or decreased GFR 90 2 Kidney damage with mild decrease in GFR 60-89 3 Moderate decrease in GFR 30-59 4 Severe decrease in GFR 15-29 5 Kidney failure <15 (or dialysis) 57 Acute inflammation: >10.00 58 RUN DATE: 07/20/14 [facility] LAB LIVE PAGE 1 RUN TIME: [address] [place] [address] Specimen Inquiry Name: HANG FOY : [address]: Acosta Colorado MD Acct: [id number] Unit: [id number] AGE: 44 Location: [facility] Re07/18/14 SEX: F Status: DEP ER SPEC: [id number] PAWAN: 07/18/[address] [facility] [address]: Acosta [place] MD REQ: [id number] RECD: 07/18/14 STATUS: DOREEN COLON DR: Ange Peraza FINANCIAL ANALYSIS CONSULTANT _ SOURCE: URINE SPDESC: ORDERED: Urine Culture Procedure Result Verified Site Urine Culture Final 07/20/14- 0817 ML Organism 1 ESCHERICHIA COLI [place] Count >100,000 (Many) CFU/ML 1. ESCHERICHIA COLI M.I.C. RX --------- ------ Ampicillin <=2 S Cefazolin <=4 S Cefepime <=1 S Ceftriaxone <=1 S Ciprofloxacin >=4 R Gentamicin <=1 S Levofloxacin >=8 R Meropenem <=0.25 S Nitrofurantoin <=16 S Tetracycline <=1 S Pipercillin/Tazobactam <=4 S Trimethoprim/Sulfamethoxazole <=20 S Amoxicillin/Clavulanic Acid <=2 S Aztreonam <=1 S Contact the Microbiology Department for any additional antibiotic reporting. END OF REPORT * ML=Testing performed at Main Lab DEPARTMENT OF PATHOLOGY, [address] [place] [address] Leobardo Sheets M.D. Director [facility] # [id number] 59 Because ethnic data is not always readily available, this report includes an eGFR for both -Americans and non- Americans. The National Kidney Disease Education Program (NKDEP) does not endorse the use of the MDRD equation for patients that are not between the ages of 18 and 70, are , have extremes of body size, muscle mass, or nutritional status, or are non- or non-. According to the National Kidney Foundation, irrespective of diagnosis, the stage of the disease is based on the level of kidney function: Stage Description GFR(mL/min/1.73 m(2)) 1 Kidney damage with normal or decreased GFR 90 2 Kidney damage with mild decrease in GFR 60-89 3 Moderate decrease in GFR 30-59 4 Severe decrease in GFR 15-29 5 Kidney failure <15 (or dialysis) 60 Microalbuminuria in a random sample is defined as: Microalbumin/Creatinine ratio of 30-299 ug/mg. 61 Desirable <150 Borderline high 150-199 High 200-499 Very High >500 62 Desirable <200 Borderline high 200-239 High >239 63 Low <40 Desirable: 40-60 High: >60 64 Desirable <100 Near Optimal 100-129 Borderline high 130-159 High 160-189 Very High >189 Procedures Date CPT Code Description Status 04/26/2018 Diabetic Retinal Eye Exam Completed 01/28/2018 Diabetic Retinal Eye Exam Completed 01/18/2018 Diabetic Retinal Eye Exam Completed 10/19/2017 Diabetic Retinal Eye Exam Completed 08/03/2017 Diabetic Retinal Eye Exam Completed 05/29/2017 Diabetic Retinal Eye Exam Completed 04/20/2017 Diabetic Foot Exam Completed 01/30/2017 Mammogram Completed 01/06/2017 90595 Laparscopy Surgery Gastric Restrictive Procedure Completed W/Bypass 12/29/2016 64628 EKG, Interpretation Only Completed 04/10/2016 52376 Pulmonary Function><Bronchodil Completed 03/31/2016 Diabetic Retinal Eye Exam Completed 03/21/2016 Diabetic Retinal Eye Exam Completed 03/10/2016 Diabetic Retinal Eye Exam Completed 02/15/2016 Diabetic Retinal Eye Exam Completed 02/01/2015 Diabetic Retinal Eye Exam Completed 01/18/2015 Mammogram Completed 04/17/2014 Diabetic Foot Exam Completed 04/02/2014 59578 Polysomnography Sleep Staging 4+ Parameters W/Cpap Completed 03/13/2014 27355 Polysomnography Sleep Staging 4+ Parameters Completed 02/02/2014 Diabetic Foot Exam Completed 01/31/2014 Diabetic Retinal Eye Exam Completed 01/30/2014 Diabetic Retinal Eye Exam Completed 01/16/2014 Mammogram Completed 12/30/2013 Diabetic Foot Exam Completed 06/10/2012 Mammogram Completed Encounters Type Date Location Provider CPT E/M Dx Office Visit 04/27/2018 [facility] Saniya Adams, 19075 G47.33 2:00p [facility] DIANELYS ANAND, MANAGER QUALITY COMPLIANCE-BC Z98.84 Z68.33 Office Visit 02/08/2018 8:10a [facility] Internal Medicine Katie Valnete M.D. 27881 N73.9 - Anna B37.2 Office Visit 01/28/2018 8:30a [facility] Internal Medicine Katie Valente, 93111 E08.3219 - Anna Barnes T19.9xxA N73.9 Office Visit 01/11/2018 8:30a [facility] [place], [address] Z98.84 [facility] FACS Office Visit 11/06/2017 9:40a [facility] Internal Medicine Willem Gray, 52173 R42 - Anna Barnes Office Visit 10/12/2017 9:00a [facility] Kristin Gutierrez 37949 Z98.84 [facility] DARCY Hanson Office Visit 07/30/2017 8:30a [facility] Internal Medicine Katie Valente M.D. 35288 Z98.84 - Anna I83.892 Z23 R80.8 Z86.39 Office Visit 07/10/2017 8:30a [facility] [place], [address] Z98.84 [facility] FACS Office Visit 04/17/2017 9:30a [facility] Of Kristin Gutierrez 91527 Z98.84 [facility] Ecbarbara, FINANCIAL ANALYSIS CONSULTANT Office Visit 03/30/2017 4:00p [facility] Medicine Jia Beatty, N.P. 64729 B35.1 - [place] Office Visit 03/06/2017 9:45a [facility] Saniya Adams, 99648 G47.33 [facility] CHENG RN, MANAGER QUALITY COMPLIANCE- E66.01 Z68.41 Z98.84 Office Visit 01/27/2017 9:50a [facility] Internal Medicine Katie Valente M.D. 55757 E11.9 - Anna N92.0 E55.9 Office Visit 01/08/2017 4:20p [facility], Taylor Londono, 19749 E11.9 Hospitalists Molly Z79.4 Z98.84 Office Visit 01/01/2017 3:20p [facility] [place] [address] J06.9 E66.01 E11.65 G47.33 M48.06 Z68.42 Office Visit 10/31/2016 10:30a [facility] [place], [address] Z71.3 [facility] FACS E66.01 E11.65 G47.33 I10 Office Visit 10/07/2016 2:40p [facility] Internal Medicine Katie Valente, 91237 M48.06 - Anna Barnes D50.0 Office Visit 09/12/2016 9:45a [facility] [place], [address] E66.01 [facility] FACS Z71.3 Office Visit 08/22/2016 9:00a [facility] Kristin Gutierrez 68103 E66.01 [facility] Margie FINANCIAL ANALYSIS CONSULTANT Z71.3 E11.65 G47.33 I10 Office Visit 07/25/2016 9:30a [facility] [place], [address] E66.01 [facility] FACS G47.33 E11.65 I10 Z71.3 Office Visit 06/30/2016 2:00p [facility] Kristin Gutierrez 69692 E66.01 [facility] Ecbarbara, FINANCIAL ANALYSIS CONSULTANT G47.33 E11.65 I10 Z71.3 Office Visit 06/09/2016 7:30a [facility] Internal Medicine Katie Valente M.D. 38048 E55.9 - Anna N92.0 E66.01 B37.9 Z23 Office Visit 06/02/2016 11:00a [facility] [place], [address] E66.01 [facility] FACS G47.33 M54.5 E11.65 Office Visit 05/16/2016 9:00a [facility] Dawit Phillips, 58523 M48.06 Of [facility]oc[facility]arens Office Visit 04/15/2016 9:50a [facility] Internal Medicine - Katie Valente, 28156 M51.16 Garima Barnes R19.7 E66.9 Office Visit 02/29/2016 11:40a [facility] Internal Medicine Kristan Hoover M.D. 39393 R19.7 - [place] J01.90 Office Visit 01/22/2016 11:00a [facility] Internal Medicine Kristan Hoover M.D. 72190 A09 - Gar[place] Office Visit 01/11/2016 2:00p [facility] Internal Medicine Kristan Hoover M.D. 16469 M50.80 - [place] I83.813 E78.89 Office Visit 11/09/2015 9:40a [facility] Internal Medicine Kristan Hoover M.D. 12676 M51.16 - [place] E11.65 J01.90 Office Visit 10/05/2015 4:00p [facility] Internal Medicine Kristan Hoover M.D. 70047 M50.80 - [place] Office Visit 09/28/2015 3:40p [facility] Internal Medicine Kristan Hoover M.D. 41600 M50.80 - [place] R20.0 M62.838 Office Visit 09/21/2015 9:15a [facility] Saniya Adams, 01317 G47.33 [facility] DIANELYS ANAND, [facility] E66.01 Office Visit 08/30/2015 8:40a [facility] Internal Medicine Kristan Hoover M.D. 09268 E11.65 - [place] L08.89 Office Visit 05/25/2015 11:40a [facility] Internal Medicine Kristan Hoover M.D. 17459 E11.65 - [place] V04.81 Z23 M54.42 M54.2 M62.838 Office Visit 03/20/2015 10:00a [facility] Saniya Adams, 90777 327.23 [facility] DIANELYS ANAND, [facility] 780.53 Office Visit 02/20/2015 8:40a [facility] Internal Medicine Kristan Hoover M.D. 33505 250.02 - [place] 724.2 845.00 V76.19 V76.2 626.4 V72.31 Office Visit 01/12/2015 11:00a [facility] Internal Medicine Kristan Hoover M.D. 70101 250.02 - [place] V76.19 Office Visit 01/02/2015 10:30a [facility] Saniya Adams, 39894 327.23 [facility] DIANELYS ANAND, [facility] 780.53 Office Visit 10/31/2014 9:00a [facility] Internal Medicine Kristan Hoover M.D. 00848 250.02 - [place] 847.0 454.8 728.85 454.9 V58.67 Office Visit 08/28/2014 10:30a [facility] [place] [address] 274.11 [place] 250.00 355.5 354.0 Office Visit 07/25/2014 11:00a [facility] Internal Medicine - Acosta Gorman, DARCY 60092 274.11 [place] 592.0 Office Visit 07/20/2014 4:20p [facility], Sridhar Jordan M.D. 19623 599.0 Hospitalists 038.9 250.00 327.23 Office Visit 07/19/2014 4:19p [facility], Sridhar Jordan M.D. 41758 599.0 Hospitalists 038.9 250.00 327.23 Office Visit 07/18/2014 4:19p [facility], Rubens Trevizo 82034 599.0 Hospitalists N.P. 038.9 250.00 327.23 Office Visit 07/10/2014 9:30a [facility] [place]ía [place] [address] 327.23 [facility] Office Visit 06/30/2014 9:00a [facility] Internal Medicine - Ange Peraza, 57108 250.62 [place] N.P. 054.9 v04.81 v05.3 Office Visit 04/12/2014 8:30a [facility] Internal Medicine Peng Wolf, 23581 250.62 - Gar[place] Barnes,FACP 327.23 Office Visit 03/09/2014 8:30a [facility] Internal Medicine Ange Peraza, N.P. 04796 250.62 - [place] 796.2 V06.1 V05.3 Office Visit 01/31/2014 8:30a [facility] Internal Medicine Ange Peraza, N.P. 98986 250.62 - [place] 796.2 v05.3 v03.82 Office Visit 12/29/2013 9:00a [facility] Internal Medicine Ange Peraza, N.P. 16268 V70.0 - [place] 493.90 V77.91 V76.19 250.62 796.2 786.03 Plan of Care Future Appointment(s):10/29/2018 9:00 am - Saniya Adams DNP, RN, MANAGER QUALITY COMPLIANCE-BC at [facility]05/13/2018 - Katie Valente M.D.Z00.00 Encntr for general adult medical exam w/o abnormal findingsComments:VACCINES: Flu shot every year in the fall which you received today Pneumonia vaccines: there are two pneumonia vaccines recommended you received the second one today SCREENING:Colon cancer screening: due (F)Mammogram: every 1-2 years between age 50 -75Screening for glaucoma: every 1-2 years unless otherwise instructed by your eye doctor Cardiovascular Disease: Cholesterol Screening test every 5 yearsEXERCISE:Leg exercise like walking is essential to maintaining independence !We would like to have a copy on file when you get your Health Care Proxy and Advance Directives completed.Z12.31 Encntr screen mammogram for malignant neoplasm of breastNew Xrays:MG Screening EaxinzhkrJ88.11 Encounter for screening for malignant neoplasm of colonReferral:Luciano Mckee M.D., [id number] Encounter for ykqnntazeppjQ64.2 Candidiasis of skin and nailNew Medication:Fluconazole 100 mgZ68.33 Body mass index (BMI) 33.0-33.9, adultNew Labs:Lipid Profile (Trig/Chol/HDL)Comp Metabolic Panel
--- NOTE | 2018-06-06 08:10 | UC ---
Skin Complaint HPI - HPI Summary HPI Summary: 48 y/o female presents to the urgent care c/o painful sore in the LLQ of her abdomen s/p insect bite for the past 2 days. She has noticed the insect bite while she was taking a shower. Pain at touch is 6/10 sharp w/o any radiation, warm to touch and indurated. Pt denies Hx of MRSA. Pt has not taking anything to alleviate symptoms. pt denies fever, SOB, chest pain, abdominal pain, N/V/D. Hx of tick bites. - History of Current Complaint Time Seen by Provider: 06/06/18 08:06 Stated Complaint: SKIN COMPLAINT Hx Obtained From: Patient Hx Last Menstrual Period: 09/07/16 Onset/Duration: Gradual Onset, Lasting Days - 2 days, Still Present, Worse Since - today Skin Exposure Onset/Duration: Days Ago - 2 days Timing: Constant Onset Severity: Mild Current Severity: Moderate Pain Intensity: 6 Pain Scale Used: 0-10 Numeric Location: Discrete - LLQ abdomen painful cyst Character: Swelling, Redness, Raised, Painful Aggravating Factor(s): Touch Alleviating Factor(s): Nothing Associated Signs & Symptoms: Positive: Rash, Drainage - yellowish, Tenderness Related History: Possible Reaction to: Insect - Allergy/Home Medications Allergies/Adverse Reactions: Allergies Allergy/AdvReac Type Severity Reaction Status Date / Time strawberry Allergy Rash Verified 06/06/18 08:06 Home Medications: Home Medications Calcium Carbonate [Calcium] 1 chw PO DAILY 06/06/18 [History Confirmed 06/06/18] Review of Systems Constitutional: Negative Skin: Other - LLQ abdomen painful cyst w/ sorrounding redness Eyes: Negative ENT: Negative Respiratory: Negative Cardiovascular: Negative Gastrointestinal: Negative Genitourinary: Negative Motor: Negative Neurovascular: Negative Musculoskeletal: Negative Neurological: Negative Psychological: Negative Is Patient Immunocompromised?: No All Other Systems Reviewed And Are Negative: Yes PMH/Surg Hx/FS Hx/Imm Hx Previously Healthy: Yes Endocrine History: Diabetes - Surgical History Surgical History: Yes Surgery Procedure, Year, and Place: 1995- tubal ligation, GALL STONE REMOVAL 2009, 4 C-SECTIONS, KIDNEY STONES LITHOTRIPSY 2013, GASTRIC BYPASS 01/06/17 Other Surgical History: gallstone 'laser'. lithotripsy left sided kidney stones - Family History Known Family History: Positive: Hypertension, Diabetes Family History: Father: fatal [place] at age 72. - Social History Occupation: Employed Full-time Lives: With Family Alcohol Use: None Alcohol Amount: 1 beer Substance Use Type: None Substance Use Comment - Amount & Last Used: TYLENOL #3 FOR PAIN Smoking Status (MU): Never Smoked Tobacco Type: Cigarettes Amount Used/How Often: 1/2-1 PPD X 23 YEARS Have You Smoked in the Last Year: No When Did the Patient Quit Smoking/Using Tobacco: 2004 Household Exposure Type: Cigarettes - Immunization History Most Recent Influenza Vaccination: 05/2016 Most Recent Tetanus Shot: Unsure Most Recent Pneumonia Vaccination: none Physical Exam - Summary Physical Exam Summary: Vital Signs Reviewed: Yes General: well developed, well nourished obese female sitting in the examining table w/o any apparent distress Eye Exam: Normal Eyes: Positive: Conjunctiva Clear - PERRLA, EOMI, fundi grossly normal ENT: Positive: Normal ENT inspection, Hearing grossly normal, Pharynx normal, TMs normal Neck: Positive: Supple, Nontender, No Lymphadenopathy Respiratory: Positive: Chest non-tender, Lungs clear, Normal breath sounds, No respiratory distress Cardiovascular: Positive: RRR, No Murmur, Pulses Normal, Brisk Capillary Refill Abdomen Description: Positive: Nontender, No Organomegaly, Soft. Negative: CVA Tenderness (R), CVA Tenderness (L) Bowel Sounds: Positive: Present Musculoskeletal: Positive: Strength Intact, ROM Intact, No Edema Neurological: Positive: Alert, Muscle Tone Normal Psychological Exam: Normal Skin: Positive: LLQ abdomen w/ an erythematous pustule that is indurated and fluctuant, tender to palpation w/ sorrounding erythema, swollen, and warm to touch about 3.0x 2.0cm in size. sensation is intact, capillary refill WNL, reflexes WNL Triage Information Reviewed: Yes Course/Dx - Course Course Of Treatment: 48 y/o female presents to the urgent care c/o painful sore in the LLQ of her abdomen s/p insect bite for the past 2 days. She has noticed the insect bite while she was taking a shower. Pain at touch is 6/10 sharp w/o any radiation, warm to touch and indurated. Pt denies Hx of MRSA. Pt has not taking anything to alleviate symptoms. pt denies fever, SOB, chest pain, abdominal pain, N/V/D. Hx of tick bites. Hx obtained. Pt w/ LLQ abdomen w/ an erythematous pustule that is indurated and fluctuant, tender to palpation w/ sorrounding erythema, swollen, and warm to touch about 3.0x 2.0cm in size on examination. I&D of abscess procedure:The procedure was explained and consent obtained. Wellborn protocol performed. The wound was anesthetized with 4mL of Lido/epi 1% with good anesthesia. Sterile drape and prep were done. The fluctuant center was incised with #11 blade scalpel. A moderate amount of caseous material was expressed . wound cultures obtained and sent to lab top r/ o MRSA. The wound was probed for loculated areas and irrigated with normal saline. The wound was packed loosely with wick left open. Bacitracin topical ointment applied and wound covered with sterile dressing. The patient tolerated the procedure well. Pt Rx Bactrim PO and Bacitracin oint. Advised to return to the urgent care for wound check up. Pt advised fever develops and pain increase despite ABX to go immediately to the ER for further management. Pt understood and agreed with D/C instructions. Left the clinic ambulating A& OX3. - Differential Diagnoses - Skin Complaint Differential Diagnoses: Abscess, Cellulitis, Lymphadenitis, MRSA - Diagnoses Provider Diagnoses: 1- Incision and drainage of abscess on LLQ abdomen Discharge - Sign-Out/Discharge Documenting (check all that apply): Patient Departure - D/c home All imaging exams completed and their final reports reviewed: No Studies - Discharge Plan Condition: Stable Disposition: HOME Prescriptions: Bacitracin OINTMENT* 1 applic TOPICAL BID #1 tube Sulfamethox/Trimethoprim DS* [Bactrim DS 800/160 TAB*] 1 tab PO BID #20 tab Patient Education Materials: Abscess (ED) Referrals: Katie Valente MD [Primary Care Provider] - 2 Days Additional Instructions: 1-Please take full course of antibiotic to avoid resistance. Keep wound clean and dry with a sterile dressing. Apply bacitracin topical as directed 2- F/u wound check up in 2 days with your PCP or at the urgent care for removal of packing 3-. Take Ibuprofen PO q6-8hrs prn for pain or swelling. 4-If you develop fever or severe redness despite antibiotic please go to the ER immediately or return to the Urgent care. 5- Wound culture sent to lab, if any abnormal result you will receive a call from us. - Billing Disposition and Condition Condition: STABLE Disposition: Home
[2018-06-06 08:16] VITALS: BP 136/62
[2018-06-06] MEDS ORDERED: Lidocaine 1% MPF wEPI 200,000* 30 ML SDV INJ ONE (08:28)
[2018-06-06] MEDS ORDERED: Lidocain 1% EPI 1:100,000 * 30 ML MDV ONE (08:31)
[2018-06-06] MEDS ORDERED: Lidocain 1% EPI 1:100,000 * 30 ML MDV INJ ONE (08:33)
== END 2018-06-06 09:15 | disposition home or self-care (01) ==
LOC: UCEAST 08:00
DX: L02.211 Cutaneous abscess of abdominal wall (principal); E11.9 Type 2 diabetes mellitus without complications; Z87.891 Personal history of nicotine dependence; Z91.018 Allergy to other foods
CPT/HCPCS: 10060; 87070; 87077; 87186; 87205; 87640; 87641; 99212; G0463

== ENCOUNTER 2019-08-01 07:21 | Emergency (ER) | payer BC ==
[2019-08-01 07:39] VITALS: BP 146/78
[2019-08-01] MEDS ORDERED: Ketorolac INJ* 30 MG/ML 1 ML VIAL IM ONE (08:02)
--- NOTE | 2019-08-01 08:17 | UC ---
General HPI - HPI Summary HPI Summary: Ms. Foy has multiple complaints. She's had a frontal and temporal, bilateral headache for several days. She also has been nauseated a lot and drinking only soup. She complains of some midline low back pain worse when she is up moving around and better when she is lying down. She notes no exacerbating or relieving factors for her headache. She has a small amount of nasal discharge in the morning but it usually clears up during the day. She's been lying around a lot for the last several days. - History of Current Complaint Chief Complaint: UCHeadache Stated Complaint: HEADACHE, STOMACH ACHE Time Seen by Provider: 08/01/19 07:46 Hx Obtained From: Patient Hx Last Menstrual Period: 09/07/16 Onset/Duration: Gradual Onset Timing: Constant Onset Severity: Moderate Current Severity: Moderate Pain Intensity: 4 - Allergy/Home Medications Allergies/Adverse Reactions: Allergies Allergy/AdvReac Type Severity Reaction Status Date / Time strawberry Allergy Rash Verified 08/01/19 07:39 Home Medications: Home Medications NK [No Home Medications Reported] 08/01/19 [History Confirmed 08/01/19] PMH/Surg Hx/FS Hx/Imm Hx Previously Healthy: Yes - Surgical History Surgical History: Yes Surgery Procedure, Year, and Place: 1995- tubal ligation, GALL STONE REMOVAL 2009, 4 C-SECTIONS, KIDNEY STONES LITHOTRIPSY 2013, GASTRIC BYPASS 01/06/17 Other Surgical History: gallstone 'laser'. lithotripsy left sided kidney stones - Family History Known Family History: Positive: Hypertension, Diabetes, Other - Father: fatal [place] at age 72. Family History: Father: fatal [place] at age 72. - Social History Alcohol Use: Rare Alcohol Amount: 1 beer Substance Use Type: None Substance Use Comment - Amount & Last Used: TYLENOL #3 FOR PAIN Smoking Status (MU): Former Smoker Type: Cigarettes Amount Used/How Often: 1/2-1 PPD X 23 YEARS Have You Smoked in the Last Year: No When Did the Patient Quit Smoking/Using Tobacco: 2004 Household Exposure Type: Cigarettes - Immunization History Most Recent Influenza Vaccination: 05/2016 Most Recent Tetanus Shot: Unsure Most Recent Pneumonia Vaccination: none Review of Systems All Other Systems Reviewed And Are Negative: Yes Constitutional: Positive: Negative - She has been taking Tylenol a lot Skin: Positive: Negative Eyes: Positive: Negative ENT: Positive: Nasal Discharge Cardiovascular: Positive: Negative Gastrointestinal: Positive: Abdominal Pain, Nausea Genitourinary: Positive: Frequency Neurological: Positive: Headache Physical Exam - Summary Physical Exam Summary: She was nontoxic in appearance with stable vital signs. Triage Information Reviewed: Yes Appearance: Well-Appearing, No Pain Distress, Obese Vital Signs: Initial Vital Signs Temp 98.3 F 08/01/19 07:31 Pulse 74 08/01/19 07:31 Resp 16 08/01/19 07:31 BP 146/78 08/01/19 07:31 Pulse Ox 99 08/01/19 07:31 Vital Signs Reviewed: Yes Eyes: Positive: Conjunctiva Clear ENT Exam: Normal Neck: Positive: Supple, Nontender, No Lymphadenopathy. Negative: Nuchal Rigidity - Negative Kernig's and Brudzinski's signs Respiratory: Positive: Chest non-tender, Lungs clear, Normal breath sounds Cardiovascular: Positive: RRR Abdominal Exam: Other - Mild epigastric tenderness. Musculoskeletal Exam: Normal Neurological Exam: Normal Course/Dx - Course Course Of Treatment: I'm not sure of the etiology of her symptoms. This may just be a viral syndrome. I explained to her that we don't have the ability to do real-time blood testing here at the convenient care. I recommended if she feels that she should go to the emergency department for evaluation. I am able to give her some headache treatment and she is given a shot of Toradol here. She has no meningeal signs at this time. I'm going to give her some tramadol for a couple of days. - Diagnoses Provider Diagnosis: Viral syndrome Discharge ED - Sign-Out/Discharge Documenting (check all that apply): Patient Departure All imaging exams completed and their final reports reviewed: No Studies - Discharge Plan Condition: Stable Disposition: HOME Patient Education Materials: Acute Headache (ED) Referrals: Katie Valente MD [Primary Care Provider] - Additional Instructions: If your symptoms continue, worsen or new symptoms develop he should go to the emergency department for further evaluation. - Billing Disposition and Condition Condition: STABLE Disposition: Home
== END 2019-08-01 08:31 | disposition home or self-care (01) ==
LOC: UCEAST 07:21
DX: R51 Headache (principal); M54.5 Low back pain; R09.89 Other specified symptoms and signs involving the circulatory and respiratory systems; R10.9 Unspecified abdominal pain; R11.0 Nausea; R35.0 Frequency of micturition; Z91.018 Allergy to other foods; Z87.891 Personal history of nicotine dependence
CPT/HCPCS: 81003; 96372; 99212; G0463; J1885

== ENCOUNTER 2019-09-01 12:08 | Emergency (ER) | payer BC ==
--- NOTE | 2019-09-01 15:25 | UC ---
Throat Pain/Nasal Tim HPI - HPI Summary HPI Summary: 49-year-old woman comes in with a chief complaint of 2 weeks of upper respiratory tract infection symptoms. She's been having a runny nose yellow- green rhinorrhea. Postnasal drip causing cough. She has been fatigued. No complaint of any wheezing or shortness of breath. - History of Current Complaint Chief Complaint: UCGeneralIllness Stated Complaint: COUGH Time Seen by Provider: 09/01/19 15:12 Hx Last Menstrual Period: 09/07/16 Pain Intensity: 6 - Allergies/Home Medications Allergies/Adverse Reactions: Allergies Allergy/AdvReac Type Severity Reaction Status Date / Time strawberry Allergy Rash Verified 09/01/19 12:39 Home Medications: Home Medications Ibuprofen 200 mg PO Q6HR 09/01/19 [History Confirmed 09/01/19] PMH/Surg Hx/FS Hx/Imm Hx Previously Healthy: Yes Respiratory History: Asthma - Surgical History Surgical History: Yes Surgery Procedure, Year, and Place: 1995- tubal ligation, GALL STONE REMOVAL 2009, 4 C-SECTIONS, KIDNEY STONES LITHOTRIPSY 2013, GASTRIC BYPASS 01/06/17 Other Surgical History: gallstone 'laser'. lithotripsy left sided kidney stones - Family History Known Family History: Positive: Hypertension, Diabetes, Other - Father: fatal [place] at age 72. Family History: Father: fatal [place] at age 72. - Social History Alcohol Use: Rare Alcohol Amount: 1 beer Substance Use Type: None Substance Use Comment - Amount & Last Used: TYLENOL #3 FOR PAIN Smoking Status (MU): Former Smoker Type: Cigarettes Amount Used/How Often: 1/2-1 PPD X 23 YEARS Have You Smoked in the Last Year: No When Did the Patient Quit Smoking/Using Tobacco: 2004 Household Exposure Type: Cigarettes - Immunization History Most Recent Influenza Vaccination: 05/2016 Most Recent Tetanus Shot: Unsure Most Recent Pneumonia Vaccination: none Review of Systems All Other Systems Reviewed And Are Negative: Yes Constitutional: Positive: Other - SEE HPI Skin: Positive: Negative Eyes: Positive: Negative ENT: Positive: Sore Throat, Nasal Discharge, Sinus Congestion, Sinus Pain/ Tenderness Respiratory: Positive: Cough Cardiovascular: Positive: Negative Gastrointestinal: Positive: Negative Motor: Positive: Negative Neurovascular: Positive: Negative Musculoskeletal: Positive: Negative Neurological: Positive: Negative Psychological: Positive: Negative Is Patient Immunocompromised?: No Physical Exam Triage Information Reviewed: Yes Appearance: No Pain Distress, Well-Nourished, Ill-Appearing - MILD Vital Signs: Initial Vital Signs Temp 100.1 F 09/01/19 12:35 Pulse 81 09/01/19 12:35 Resp 18 09/01/19 12:35 BP 167/85 09/01/19 12:35 Pulse Ox 97 09/01/19 12:35 Vital Signs Reviewed: Yes Eye Exam: Normal Eyes: Positive: Conjunctiva Clear ENT: Positive: Pharyngeal erythema, Nasal congestion, Nasal drainage, TMs normal Neck: Positive: Supple Respiratory: Positive: Lungs clear, Normal breath sounds, No respiratory distress Cardiovascular: Positive: RRR Musculoskeletal: Positive: Strength Intact, ROM Intact Neurological: Positive: Alert, Muscle Tone Normal Psychological: Positive: Age Appropriate Behavior Skin Exam: Normal Throat Pain/Nasal Course/Dx - Differential Dx/Diagnosis Provider Diagnosis: Sinusitis Discharge ED - Sign-Out/Discharge Documenting (check all that apply): Patient Departure All imaging exams completed and their final reports reviewed: No Studies - Discharge Plan Condition: Stable Disposition: HOME Prescriptions: Amoxicillin/Clavulanate TAB* [Augmentin TAB 875*] 875 mg PO BID #20 tab Fluticasone NASAL SPRAY 50MCG* [Flonase NASAL SPRAY 50MCG*] 2 spray BOTH NARES DAILY #1 btl Patient Education Materials: Sinusitis (ED) Forms: *Work Release Referrals: Katie Valente MD [Primary Care Provider] - Additional Instructions: FOLLOW UP WITH YOUR DOCTOR IF NOT COMPLETELY IMPROVED. GET REEVALUATED SOONER IF NOT IMPROVED OR WORSE OR ANY QUESTIONS OR CONCERNS. - Billing Disposition and Condition Condition: STABLE Disposition: Home
[2019-09-01 16:08] VITALS: BP 140/79
== END 2019-09-01 15:30 | disposition home or self-care (01) ==
LOC: UCEAST 12:08
DX: J32.9 Chronic sinusitis, unspecified (principal); J45.909 Unspecified asthma, uncomplicated; Z91.018 Allergy to other foods; Z87.891 Personal history of nicotine dependence
CPT/HCPCS: 99212; G0463